=== PATIENT | female | born 1970 | race Caucasian/White ===

== ENCOUNTER → 2018-10-01 | Outpatient (CLI) | payer OTHER ==
[2018-10-01 07:51] LABS: HCT 41.6 % (34.0-46.0); HGB 13.9 gm/dL (11.4-16.0); MCH 30.5 pg (25.0-35.0); MCHC 33.3 g/dL (31.0-37.0); MCV 91.8 fL (80.0-100.0); Mean Platelet Volume 6.7; Platelet Count 298 k/uL (150-450); RBC 4.54 m/uL (3.80-5.40); RDW 13.5 % (11.5-15.5); WBC 12.2 k/uL (3.8-10.6)
[2018-10-01 08:05] LABS: Albumin 4.4 g/dL (3.5-5.0); Calcium 9.5 mg/dL (8.4-10.2); Potassium 4.5 mmol/L (3.5-5.1); Total Bilirubin 0.4 mg/dL (0.2-1.3); Total Protein 7.8 g/dL (6.3-8.2)
[2018-10-01 08:18] LABS: INR 0.9 (<1.2); Partial Thromboplastin Time 23.3 sec (22.0-30.0); Prothrombin Time 9.9 sec (9.0-12.0)
[2018-10-01 08:33] LABS: Appearance,Urine Clear (Clear); Bacteria,Urine Rare /hpf; Bilirubin,Urine Negative (Negative); Blood,Urine Moderate (Negative); Color,Urine Yellow; Glucose,Urine (UA) Negative (Negative); Hyaline Casts,Urine 16 /lpf (0-2); Ketones,Urine Negative (Negative); Leukocyte Esterase,Urine Negative (Negative); Mucus,Urine Many /hpf; Nitrite,Urine Negative (Negative); PH, Urine 5.5 (5.0-8.0); Protein,Urine 1+ (Negative); RBC,Urine 11 /hpf (0-5); Specific Gravity,Urine 1.031 (1.001-1.035); Squamous Epithelial Cell,Urine 4 /hpf (0-4); Urobilinogen,Urine <2.0 mg/dL (<2.0); WBC,Urine 4 /hpf (0-5)
== END | disposition home or self-care (01) ==
LOC: LABPAT 06:54
PROVIDERS: ATTEND Orthopaedic Surgery Hand Surgery
DX: Z01.818 Encounter for other preprocedural examination (principal); Z01.812 Encounter for preprocedural laboratory examination
CPT/HCPCS: 80053; 81001; 85027; 85610; 85730; 87070; 93005

== ENCOUNTER 2019-08-31 12:40 | Emergency (ER) | payer OTHER ==
[2019-08-31 12:50] VITALS: TEMP 98.9
[2019-08-31] MEDS ORDERED: SODIUM CHLORIDE 0.9% 1,000 ML IV STA (13:01)
[2019-08-31 13:12] LABS: Appearance,Urine Cloudy (Clear); Bacteria,Urine Rare /hpf; Bilirubin,Urine Negative (Negative); Blood,Urine Moderate (Negative); Color,Urine Yellow; Glucose,Urine (UA) Negative (Negative); Hyaline Casts,Urine 7 /lpf (0-2); Ketones,Urine Negative (Negative); Leukocyte Esterase,Urine Negative (Negative); Mucus,Urine Moderate /hpf; Nitrite,Urine Negative (Negative); Protein,Urine 1+ (Negative); RBC,Urine 9 /hpf (0-5); Specific Gravity,Urine 1.022 (1.001-1.035); Squamous Epithelial Cell,Urine 3 /hpf (0-4); Urobilinogen,Urine <2.0 mg/dL (<2.0); WBC,Urine 2 /hpf (0-5)
[2019-08-31 13:17] LABS: Basophils # (A) 0.1 k/uL (0-0.2); Basophils % (A) 1 %; Eosinophils # (A) 0.2 k/uL (0-0.7); Eosinophils % (A) 2 %; HCT 42.8 % (34.0-46.0); HGB 13.6 gm/dL (11.4-16.0); Lymphocytes # (A) 2.9 k/uL (1.0-4.8); Lymphocytes % (A) 29 %; MCH 30.3 pg (25.0-35.0); MCHC 31.9 g/dL (31.0-37.0); MCV 94.9 fL (80.0-100.0); Mean Platelet Volume 6.7; Monocytes # (A) 0.4 k/uL (0-1.0); Monocytes % (A) 4 %; Neutrophils # (A) 6.2 k/uL (1.3-7.7); Neutrophils % (A) 62 %; Platelet Count 273 k/uL (150-450); RBC 4.51 m/uL (3.80-5.40); RDW 12.7 % (11.5-15.5)
[2019-08-31 13:30] LABS: ALT 18 U/L (4-34); AST 26 U/L (14-36); African American GFR (CKD) >90 (>60 ml/min/1.73 sqM); Albumin 4.3 g/dL (3.5-5.0); Alkaline Phosphatase 103 U/L (38-126); Anion Gap 8 mmol/L; Blood Urea Nitrogen 12 mg/dL (7-17); Carbon Dioxide 26 mmol/L (22-30); Chloride 100 mmol/L (98-107); Glucose 105 mg/dL (74-99); Non-African American GFR(CKD) >90 (>60 ml/min/1.73 sqM); Sodium 134 mmol/L (137-145); Total Bilirubin 0.3 mg/dL (0.2-1.3); Total Protein 7.7 g/dL (6.3-8.2)
--- NOTE | 2019-08-31 13:30 | ED ---
General Adult HPI - General Chief complaint: Urogenital Stated complaint: possible kidney stone Time Seen by Provider: 08/31/19 12:51 Source: patient, RN notes reviewed Mode of arrival: ambulatory Limitations: no limitations - History of Present Illness Initial comments: This a 49-year-old female presents emergency Department chief complaint of abdominal discomfort, flank pain, nausea vomiting. Patient is not felt well last couple days. She states she has severe nausea vomiting last night but she does feel improved aspect. She states that she has some lower abdominal pain, bilateral flank pain. Patient was seen in urgent care sent over secondary flank pain and hematuria. She has no history kidney stone she does admit that she always has blood within her urine after treatment of breast cancer. Patient denies any known fever but states that she's felt like she's had one. Patient denies any chest pain or shortness breath she did complain of a headache which is now resolved. - Related Data Home Medications Medication Instructions Recorded Confirmed Montelukast [Singulair] 10 mg PO DAILY 11/07/14 10/09/18 Gabapentin [Neurontin] 400 mg PO DAILY 12/07/17 10/09/18 Levothyroxine Sodium [Synthroid] 100 mcg PO DAILY 12/07/17 10/09/18 Tamoxifen [Nolvadex] 10 mg PO DAILY 12/07/17 10/09/18 Penicillin V Potassium [Pen Vee K] 500 mg PO QID 10/05/18 10/09/18 Previous Rx's Medication Instructions Recorded Aspirin 325 mg PO BID #60 tab 10/10/18 HYDROcodone/APAP 7.5-325MG [[place] 1 - 2 tab PO Q6H PRN #56 tab 10/10/18 7.5-325] Nicotine 21Mg/24Hr Patch [Habitrol] 1 patch TRANSDERM DAILY #30 patch 10/10/18 Sennosides [Senokot] 1 tab PO BID #60 tablet 10/10/18 Allergies Allergy/AdvReac Type Severity Reaction Status Date / Time phenazopyridine HCl Allergy Severe throat and Verified 08/31/19 12:50 [From Pyridium] lip swelling Review of Systems ROS Statement: Those systems with pertinent positive or pertinent negative responses have been documented in the HPI. ROS Other: All systems not noted in ROS Statement are negative. Past Medical History Past Medical History: Cancer, Thyroid Disorder Additional Past Medical History / Comment(s): lt breast cancer/ chemo/ 2016, joann mical induced cystitis History of Any Multi-Drug Resistant Organisms: None Reported Past Surgical History: Orthopedic Surgery, Tubal Ligation Additional Past Surgical History / Comment(s): jcarlos. masctectomy; L ankle plate Past Anesthesia/Blood Transfusion Reactions: No Reported Reaction Additional Past Anesthesia/Blood Transfusion Reaction / Comment(s): hard to wake sometimes Past Psychological History: No Psychological Hx Reported Smoking Status: Current every day smoker Past Alcohol Use History: Occasional Past Drug Use History: None Reported - Past Family History Mother Family Medical History: No Reported History Father Family Medical History: No Reported History General Exam Limitations: no limitations General appearance: alert, in no apparent distress Head exam: Present: atraumatic, normocephalic, normal inspection Eye exam: Present: normal appearance, PERRL, EOMI. Absent: scleral icterus, conjunctival injection, periorbital swelling Neck exam: Present: normal inspection, full ROM. Absent: tenderness, meningismus, lymphadenopathy Respiratory exam: Present: normal lung sounds bilaterally. Absent: respiratory distress, wheezes, rales, rhonchi, stridor Cardiovascular Exam: Present: normal rhythm, tachycardia, normal heart sounds. Absent: systolic murmur, diastolic murmur, rubs, gallop, clicks GI/Abdominal exam: Present: soft, tenderness (Mild lower abdominal), normal bowel sounds. Absent: distended, guarding, rebound, rigid Back exam: Present: CVA tenderness (L). Absent: CVA tenderness (R) Neurological exam: Present: alert, oriented X3, CN II-XII intact Skin exam: Present: warm, dry, intact, normal color. Absent: rash Course Vital Signs 08/31/19 12:45 Temperature 98.9 F Pulse Rate 122 H Respiratory 20 Rate Blood Pressure 138/99 O2 Sat by Pulse 100 Oximetry Medical Decision Making - Medical Decision Making 41-year-old female presents emergency Department after urgent care visit hematuria. Patient labs and imaging were reviewed no significant findings she does have minimal hematuria which is chronic for her. She's had this evaluated. Patient also has a viral syndrome will be discharged to admission she agrees this plan and updated on results. - Lab Data Result diagrams: 08/31/19 13:09 08/31/19 13:09 Lab Results 05/08/31/19 08/31/19 Range/Units 13:00 13:09 13:09 WBC 10.0 (3.8-10.6) k/uL RBC 4.51 (3.80-5.40) m/uL Hgb 13.6 (11.4-16.0) gm/dL Hct 42.8 (34.0-46.0) % MCV 94.9 (80.0-100.0) fL MCH 30.3 (25.0-35.0) pg MCHC 31.9 (31.0-37.0) g/dL RDW 12.7 (11.5-15.5) % Plt Count 273 (150-450) k/uL Neutrophils % 62 % Lymphocytes % 29 % Monocytes % 4 % Eosinophils % 2 % Basophils % 1 % Neutrophils # 6.2 (1.3-7.7) k/uL Lymphocytes # 2.9 (1.0-4.8) k/uL Monocytes # 0.4 (0-1.0) k/uL Eosinophils # 0.2 (0-0.7) k/uL Basophils # 0.1 (0-0.2) k/uL Sodium 134 L (137-145) mmol/L Potassium 4.0 (3.5-5.1) mmol/L Chloride 100 (98-107) mmol/L Carbon Dioxide 26 (22-30) mmol/L Anion Gap 8 mmol/L BUN 12 (7-17) mg/dL Creatinine 0.65 (0.52-1.04) mg/dL Est GFR (CKD-EPI)AfAm >90 (>60 ml/min/1.73 sqM) Est GFR (CKD-EPI)NonAf >90 (>60 ml/min/1.73 sqM) Glucose 105 H (74-99) mg/dL Plasma Lactic Acid Jairo (0.7-2.0) mmol/L Calcium 9.0 (8.4-10.2) mg/dL Total Bilirubin 0.3 (0.2-1.3) mg/dL AST 26 (14-36) U/L ALT 18 (4-34) U/L Alkaline Phosphatase 103 (38-126) U/L Total Protein 7.7 (6.3-8.2) g/dL Albumin 4.3 (3.5-5.0) g/dL Lipase 39 (23-300) U/L Urine Color Yellow Urine Appearance Cloudy H (Clear) Urine pH 6.0 (5.0-8.0) Ur Specific [place] 1.022 (1.001-1.035) Urine Protein 1+ H (Negative) Urine Glucose (UA) Negative (Negative) Urine Ketones Negative (Negative) Urine Blood Moderate H (Negative) Urine Nitrite Negative (Negative) Urine Bilirubin Negative (Negative) Urine Urobilinogen <2.0 (<2.0) mg/dL Ur Leukocyte Esterase Negative (Negative) Urine RBC 9 H (0-5) /hpf Urine WBC 2 (0-5) /hpf Ur Squamous Epith Cells 3 (0-4) /hpf Urine Bacteria Rare H (None) /hpf Hyaline Casts 7 H (0-2) /lpf Urine Mucus Moderate H (None) /hpf 08/31/19 Range/Units 13:09 WBC (3.8-10.6) k/uL RBC (3.80-5.40) m/uL Hgb (11.4-16.0) gm/dL Hct (34.0-46.0) % MCV (80.0-100.0) fL MCH (25.0-35.0) pg MCHC (31.0-37.0) g/dL RDW (11.5-15.5) % Plt Count (150-450) k/uL Neutrophils % % Lymphocytes % % Monocytes % % Eosinophils % % Basophils % % Neutrophils # (1.3-7.7) k/uL Lymphocytes # (1.0-4.8) k/uL Monocytes # (0-1.0) k/uL Eosinophils # (0-0.7) k/uL Basophils # (0-0.2) k/uL Sodium (137-145) mmol/L Potassium (3.5-5.1) mmol/L Chloride (98-107) mmol/L Carbon Dioxide (22-30) mmol/L Anion Gap mmol/L BUN (7-17) mg/dL Creatinine (0.52-1.04) mg/dL Est GFR (CKD-EPI)AfAm (>60 ml/min/1.73 sqM) Est GFR (CKD-EPI)NonAf (>60 ml/min/1.73 sqM) Glucose (74-99) mg/dL Plasma Lactic Acid Jairo 1.2 (0.7-2.0) mmol/L Calcium (8.4-10.2) mg/dL Total Bilirubin (0.2-1.3) mg/dL AST (14-36) U/L ALT (4-34) U/L Alkaline Phosphatase (38-126) U/L Total Protein (6.3-8.2) g/dL Albumin (3.5-5.0) g/dL Lipase (23-300) U/L Urine Color Urine Appearance (Clear) Urine pH (5.0-8.0) Ur Specific [place] (1.001-1.035) Urine Protein (Negative) Urine Glucose (UA) (Negative) Urine Ketones (Negative) Urine Blood (Negative) Urine Nitrite (Negative) Urine Bilirubin (Negative) Urine Urobilinogen (<2.0) mg/dL Ur Leukocyte Esterase (Negative) Urine RBC (0-5) /hpf Urine WBC (0-5) /hpf Ur Squamous Epith Cells (0-4) /hpf Urine Bacteria (None) /hpf Hyaline Casts (0-2) /lpf Urine Mucus (None) /hpf Disposition Clinical Impression: Flank pain, Viral infection, Hematuria Disposition: HOME SELF-CARE Condition: Stable Instructions (If sedation given, give patient instructions): Abdominal Pain (ED) Additional Instructions: Please return to the Emergency Department if symptoms worsen or any other concerns. Is patient prescribed a controlled substance at d/c from ED?: No Referrals: Prashanth De Anda Jr, [Primary Care Provider] - 1-2 days Time of Disposition: 14:28
--- NOTE | 2019-08-31 14:07 | CT ---
EXAMINATION TYPE: CT abdomen pelvis w con DATE OF EXAM: 08/31/2019 REFERENCE: Previous CT scan of the chest, abdomen and pelvis dated 11/06/2014. HISTORY: abdominal pain HISTORY: bilateral flank pain, bladder pain, microscopic hematuria, history of breast CA REFERENCE: NONE CT DLP: 1337.2 mGy Automated exposure control for dose reduction was used. TECHNIQUE: Helical acquisition through the abdomen and pelvis was obtained following the oral ingesti on of without Oral Contrast and following intravenous administration of 100 mL of Isovue 300. The lisseth a was reformatted in axial, coronal and sagittal projections. FINDINGS: The right breast prosthesis is partially visualized. Visualized portions of the lungs are clear. There is no pleural or pericardial fluid. The heart is no t enlarged. Within the abdomen, the liver is enlarged measuring 23 cm. It is low in attenuation and likely fatty infiltrated. The spleen and gallbladder are normal. Both adrenal glands are normal. There is no evidence of hydronephrosis or nephrolithiasis. Both kidneys demonstrate function and appe ar morphologically normal. The pancreas is normal. There is no significant retroperitoneal, iliac or inguinal adenopathy. The bladder wall is mildly thickened. This may be due to lack of distention. There is a partially calcified 2.2 cm fibroid within the left lateral body of the uterus. There is be en a previous tubal ligation. There are scattered diverticula within the sigmoid colon. There is no radiographic evidence of divert iculitis. The appendix is normal. Small bowel loops are of normal caliber. There is no free air and no free fluid seen. There is degenerative disc disease and a vacuum phenomena present at L5-S1. There is facet arthropath y at this level and also at the L4-5 level. IMPRESSION: 1. MILD THICKENING OF BLADDER WALL. PLEASE CORRELATE FOR CYSTITIS. 2. HEPATOMEGALY AND FATTY INFILTRATION OF THE LIVER. 3. NO EVIDENCE OF HYDRONEPHROSIS OR NEPHROLITHIASIS. 4. FIBROID UTERUS. 5. MILD, UNCOMPLICATED DIVERTICULOSIS OF THE SIGMOID COLON. 6. DEGENERATIVE CHANGES WITHIN THE SPINE.
[2019-08-31 14:44] VITALS: BP 130/70; PULSE 80; RESP 18
== END 2019-08-31 14:40 | disposition home or self-care (01) ==
LOC: EC 12:40
DX: B34.9 Viral infection, unspecified (principal); R31.9 Hematuria, unspecified; R10.9 Unspecified abdominal pain; R00.0 Tachycardia, unspecified; F17.200 Nicotine dependence, unspecified, uncomplicated; Z88.8 Allergy status to other drugs, medicaments and biological substances; Z79.899 Other long term (current) drug therapy; Z85.3 Personal history of malignant neoplasm of breast; Z92.21 Personal history of antineoplastic chemotherapy; Z87.448 Personal history of other diseases of urinary system
CPT/HCPCS: 36415; 80053; 83605; 83690; 85025; 81001; 74177; 96360; 99284; Q9967

== ENCOUNTER → 2019-12-11 | Outpatient (CLI) | payer OTHER ==
--- NOTE | 2019-12-11 17:21 | XR ---
EXAMINATION TYPE: XR chest 2V DATE OF EXAM: 12/11/2019 CLINICAL HISTORY: Cough and congestion. J12.81 TECHNIQUE: Frontal and lateral views of the chest are obtained. COMPARISON: Chest radiograph 11/12/2014 FINDINGS: The cardiomediastinal silhouette is within normal limits for size. Pulmonary vasculature i s normal. There is no focal air space opacity, pleural effusion, or pneumothorax seen. The osseous st ructures are intact. IMPRESSION: No acute cardiopulmonary process.
== END | disposition home or self-care (01) ==
LOC: RADXRMAIN 16:39
PROVIDERS: ATTEND Family Medicine
DX: J12.81 Pneumonia due to SARS-associated coronavirus (principal)
CPT/HCPCS: 71046

== ENCOUNTER 2020-07-23 03:04 | Emergency (ER) | payer OTHER ==
[2020-07-23 03:11] VITALS: BP 145/84; PULSE 98; RESP 16; TEMP 98.2
--- NOTE | 2020-07-23 03:14 | ED ---
Extremity Problem HPI - General Chief complaint: Extremity Problem,Nontraumatic Stated complaint: Foot Pain Time Seen by Provider: 07/23/20 03:07 Source: patient Mode of arrival: ambulatory Limitations: no limitations - Related Data Home Medications Medication Instructions Recorded Confirmed Montelukast [Singulair] 10 mg PO DAILY 11/07/14 10/09/18 Gabapentin [Neurontin] 400 mg PO DAILY 12/07/17 10/09/18 Levothyroxine Sodium [Synthroid] 100 mcg PO DAILY 12/07/17 10/09/18 Tamoxifen [Nolvadex] 10 mg PO DAILY 12/07/17 10/09/18 Penicillin V Potassium [Pen Vee K] 500 mg PO QID 10/05/18 10/09/18 Previous Rx's Medication Instructions Recorded Aspirin 325 mg PO BID #60 tab 10/10/18 HYDROcodone/APAP 7.5-325MG [[place] 1 - 2 tab PO Q6H PRN #56 tab 10/10/18 7.5-325] Nicotine 21Mg/24Hr Patch [Habitrol] 1 patch TRANSDERM DAILY #30 patch 10/10/18 Sennosides [Senokot] 1 tab PO BID #60 tablet 10/10/18 Allergies Allergy/AdvReac Type Severity Reaction Status Date / Time phenazopyridine HCl Allergy Severe throat and Verified 07/23/20 03:11 [From Pyridium] lip swelling Review of Systems ROS Statement: Those systems with pertinent positive or pertinent negative responses have been documented in the HPI. ROS Other: All systems not noted in ROS Statement are negative. Past Medical History Past Medical History: Cancer, Thyroid Disorder Additional Past Medical History / Comment(s): lt breast cancer/ chemo/ 2016, chemical induced cystitis History of Any Multi-Drug Resistant Organisms: None Reported Past Surgical History: Orthopedic Surgery, Tubal Ligation Additional Past Surgical History / Comment(s): jcarlos. masctectomy; L ankle plate Past Anesthesia/Blood Transfusion Reactions: No Reported Reaction Additional Past Anesthesia/Blood Transfusion Reaction / Comment(s): hard to wake sometimes Past Psychological History: No Psychological Hx Reported Past Alcohol Use History: Occasional Past Drug Use History: None Reported - Past Family History Mother Family Medical History: No Reported History Father Family Medical History: No Reported History General Exam Limitations: no limitations Course Vital Signs 07/23/20 03:09 Temperature 98.2 F Pulse Rate 98 Respiratory 16 Rate Blood Pressure 145/84 O2 Sat by Pulse 100 Oximetry Disposition Clinical Impression: Right foot pain Disposition: HOME SELF-CARE Condition: Good Instructions (If sedation given, give patient instructions): Metatarsalgia (DC) Is patient prescribed a controlled substance at d/c from ED?: No Referrals: Prashanth De Anda Jr, DO [Primary Care Provider] - 1-2 days Jef Bey DPM [STAFF PHYSICIAN] - 1-2 days Jleani Gomes DPM [STAFF PHYSICIAN] - 1-2 days
--- NOTE | 2020-07-23 03:39 | XR ---
EXAM: XR Right Foot Complete, 3 or More Views CLINICAL HISTORY: ITS.REASON XR Reason: pain TECHNIQUE: Frontal, lateral and oblique views of the right foot. COMPARISON: No relevant prior studies available. FINDINGS: Bones/joints: Small calcaneal heel spur. No acute fracture. No dislocation. Soft tissues: Unremarkable. No radiopaque foreign body. IMPRESSION: Normal right foot x-rays.
== END 2020-07-23 04:08 | disposition home or self-care (01) ==
LOC: EC 03:04
DX: M79.671 Pain in right foot (principal); Z79.82 Long term (current) use of aspirin
CPT/HCPCS: 99283

== ENCOUNTER → 2020-10-20 | Outpatient (CLI) | payer OTHER | CPT/HCPCS: 86780; 86803; 87340; 87390; 87480; 87491; 87510; 87591; 87660 ==

== ENCOUNTER → 2021-06-03 | Outpatient (CLI) | payer OTHER ==
--- NOTE | 2021-06-03 15:48 | US ---
EXAMINATION TYPE: US pelvic complete DATE OF EXAM: 06/03/2021 COMPARISON: NONE CLINICAL HISTORY: 50-year-old female N95.0 Post Menopausal Bleeding. Spotting, on tamoxifen, hx of br [place]. hx of fibroids. TECHNIQUE: Transvaginal sonographic images were medically necessary to better assess the following an atomy: Uterus and ovaries. Date of LMP: 2014 FINDINGS: EXAM MEASUREMENTS: Uterus: 11.9 x 6 x 7.8 cm Endometrial Stripe: 2.2 cm 1. Uterus: Anteverted Heterogenous fibroid uterus. Heterogeneous rounded area anterior uterine bod y appears intramural but may have a submucosal component and measures 3.2 x 2.8 x 4.3 cm. Calcified f ibroid posterior uterine body is primarily intramural measuring 1.7 x 1.1 x 2.1 cm. 2. Endometrium: Appears thickened. 3. Right Ovary: Obscured by overlying bowel gas 4. Left Ovary: Obscured by overlying bowel gas\ 5. Bilateral Adnexa: wnl 6. Posterior cul-de-sac: wnl IMPRESSION: 1. Fibroid uterus. There is a rounded heterogeneous area measuring 4.3 cm along the anterior body, zuñiga spected right that is primarily intramural but may have a submucosal component. Short interval follow -up to reassess. 2. Additional 2.1 cm posterior uterine body calcified fibroid. 3. Thickened endometrial stripe at 2.2 cm. Reassess any 6-8 week follow-up . This could be due to en dometrial hyperplasia from tamoxifen use. Further evaluation as clinically indicated. 4. Unable to visualize either ovary.
== END | disposition home or self-care (01) ==
LOC: RADUSWWP 12:54
PROVIDERS: ATTEND Obstetrics & Gynecology
DX: D25.9 Leiomyoma of uterus, unspecified (principal)
CPT/HCPCS: 76830; 76856

== ENCOUNTER → 2021-06-16 | Day surgery (SDC) | payer OTHER ==
[2021-06-16 09:09] VITALS: BP 161/89; PULSE 110; RESP 18; TEMP 98.5
--- NOTE | 2021-06-16 10:21 | P.PCN ---
Date of Procedure: 06/16/21 Preoperative Diagnosis: Postmenopausal bleeding. Postoperative Diagnosis: Postmenopausal bleeding. Procedure(s) Performed: Endometrial biopsy. Anesthesia: none Surgeon: Jj Vergara Estimated Blood Loss (ml): 1 Pathology: other (Endometrial tissue) Condition: stable Disposition: same day Indications for Procedure: This was a 51-year-old female with an LNMP of 2015. The patient has a history of breast cancer and following chemotherapy in 2014, she has been amenorrheic. She was also started on tamoxifen for the breast cancer. She developed light vaginal bleeding on 05/21/2021 and the tamoxifen then was immediately discontinued. Her bleeding was light and lasted 2 days. She has not had bleeding since then. Pelvic ultrasound showed uterine fibroids and endometrial thickening measuring 2.2 cm. Operative Findings: The uterus is multiparous and sounded to 8.5 cm. Small amount of tissue was obtained. Description of Procedure: The findings from the pelvic ultrasound were reviewed with the patient. We have discussed the endometrial biopsy procedure. We have discussed possible risks and complications including bleeding, infection, and uterine perforation. All of her questions were answered. Patient was placed in the lithotomy position. Bimanual examination was performed. A speculum was inserted into the vagina. The cervix and vagina were prepped with Betadine solution. An Allis clamp was placed on the anterior lip of the cervix. The 3 mm endometrial biopsy instrument was placed to the fundus without difficulty. The uterus sounded to 8.5 cm. Negative pressure was applied and a back and forth and rotating motion was used. A small amount of tissue was obtained and placed in the specimen container. The procedure was performed one additional time to obtain more tissue. Again, a small amount of tissue was obtained and the combined tissue was sent for pathological examination. The patient tolerated the procedure well. The estimated blood loss was 1 mL. Her initial blood pressure following the procedure was 162/106. Her preprocedure blood pressure was 161/89. The post procedure blood pressure was obtained several minutes later after allowing the patient to relax. The repeat blood pressure was 141/88 with a pulse of 99. The patient was discharged home in stable condition. The patient was advised to check her own blood pressure on a regular basis at home since she does have a blood pressure cuff. She was instructed to follow-up with Dr. De Anda, her primary care physician, for blood pressure elevations. The patient was instructed to call if heavy bleeding, unusual pain, fever, or problems. The patient states she has been experiencing urinary symptoms and she believes she has a bladder UTI. 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 She states that over the last 2 months she has gradually been having worsening urinary symptoms especially during the past 2 weeks and she states she has had increasing bladder pressure, worsening urinary urgency which is only briefly improved after voiding. She also also been having dysuria especially at the end of urinating. Urine has been obtained for urinalysis and culture with sensitivity. She will be treated empirically with Macrodantin 100 mg by mouth twice a day 7 days. The electronic prescription for this will be sent to my her pharmacy in [place]. If her urinary symptoms do not improve, she will follow up with her urologist.
== END ==
LOC: WWCWWP 08:52
PROVIDERS: ATTEND Obstetrics & Gynecology
DX: N88.8 Other specified noninflammatory disorders of cervix uteri (principal); N85.8 Other specified noninflammatory disorders of uterus; N95.0 Postmenopausal bleeding
CPT/HCPCS: 88305

== ENCOUNTER → 2021-08-20 | Outpatient (CLI) | payer OTHER ==
[2021-08-20 11:13] LABS: HCT 38.7 % (37.2-46.3); HGB 12.4 g/dL (12.0-15.0); MCH 29.7 pg (27.0-32.0); MCV 92.8 fL (80.0-97.0); NRBC Per 100 WBC 0 /100 WBCS (0.0-0.0); Platelet Count 305 X 10*3/uL (140-440); RBC 4.17 X 10*6/uL (4.10-5.20); RDW 12.8 % (11.5-14.5); WBC 8.08 X 10*3/uL (4.50-10.00)
[2021-08-20 13:04] LABS: Basophils # (A) 0.04 X 10*3/uL (0.00-0.10); Basophils % (A) 0.5 %; Eosinophils # (A) 0.34 X 10*3/uL (0.04-0.35); Eosinophils % (A) 4.2 %; Immature Grans, Automated 0.4 %; Lymphocytes # (A) 3.22 X 10*3/uL (0.90-5.00); Lymphocytes % (A) 39.9 %; Monocytes # (A) 0.59 X 10*3/uL (0.20-1.00); Monocytes % (A) 7.3 %; Neutrophils # (A) 3.86 X 10*3/uL (1.80-7.70); Neutrophils % (A) 47.7 %
== END | disposition home or self-care (01) ==
LOC: LABPAT 07:02
PROVIDERS: ATTEND Obstetrics & Gynecology
DX: Z01.812 Encounter for preprocedural laboratory examination (principal); N95.0 Postmenopausal bleeding; R93.89 Abnormal findings on diagnostic imaging of other specified body structures
CPT/HCPCS: 36415; 85025

== ENCOUNTER 2021-08-24 06:49 | Day surgery (SDC) | payer OTHER ==
[2021-08-23 10:32] VITALS: BMI 33.3
[~2021-08-24 06:49] MED LIST: DEXAMETHASONE SOD PHOSPHATE 4 MG/ML 1 ML VIAL IV ONE; LACTATED RINGERS 1,000 ML IV SCH; MIDAZOLAM 2 MG/2 ML VIAL IV PRN; ONDANSETRON 4 MG/2 ML VIAL IVP ONE; Pre Op ABX Message 1 EACH MISC MISCELLANE ONE; SCOPOLAMINE 1 MG/72 HR PATCH TRANSDERM ONE
[2021-08-24] MEDS ORDERED: HYDROmorphone 0.5 MG/0.5 ML SYRINGE IVP PRN (07:00)
[2021-08-24] MEDS ORDERED: LIDOCAINE 2% INJ 20 MG/ML (2 ML VIAL) ONE (07:56)
[2021-08-24] MEDS ORDERED: PROPOFOL 10 MG/ML 20 ML VIAL IV ONE (07:56)
[2021-08-24] MEDS ORDERED: MIDAZOLAM 2 MG/2 ML VIAL ONE (07:56)
[2021-08-24] MEDS ORDERED: KETOROLAC 15 MG/ML 1 ML VIAL ONE (07:56)
[2021-08-24] MEDS ORDERED: fentaNYL (PF) 50 MCG/ML 2 ML AMP ONE (07:56)
--- NOTE | 2021-08-24 08:35 | P.OP ---
Date of Procedure: 08/24/21 Preoperative Diagnosis: Thickened endometrium sonographically Postoperative Diagnosis: Submucosal fibroids, small, 3-4 in number Procedure(s) Performed: Hysteroscopy, dilatation and curettage of the uterine cavity Anesthesia: VIVIENNE Surgeon: Sapna Block Estimated Blood Loss (ml): 10 IV fluids (ml): 500 Urine output (ml): 50 Pathology: other (Endometrial curettings) Condition: stable Disposition: PACU Description of Procedure: Patient is brought to the operating suite where general anesthetic is administered without difficulty. She's placed in the dorsal lithotomy position, the cervix, vagina, perineal bodies are all prepped and draped in the usual sterile fashion. The appropriate timeout is performed to assure proper patient and procedural identification. Urine hCG is negative. The urethra is prepped with Betadine and a catheterized specimen is urine is sent to pathology for evaluation for previous history of urinary tract infection. Examination under anesthesia reveals a small mobile uterus, negative adnexa bilaterally. Weighted speculum was placed into the vagina. The anterior lip of the cervix is grasped gently with a double-tooth tenaculum. Uterus sounds to a depth of 9 cm in the anteverted position. The cervix is now gently and systematically dilated using Hanks dilators. Hysteroscope was introduced and fluid is infused into the cavity. The cavity is distended and inspected. There are 3-4 small submucosal fibroids noted. No other obvious polyps or defects. Hysteroscope was removed. Cavity is now thoroughly and systematically curettaged with a medium sharp curette for a moderate amount of tissue. Hysteroscope was once again placed, several small fibroids are still present, however a good sampling of the cavity has been obtained. 's speculum is removed and the tenaculum is removed. Cervix is clean and dry. All sponge needle and enhancement counts are correct. Patient is brought back to recovery room in stable condition with a pulse of 74, blood pressure 118/69, 98% O2 saturation. Toradol is given prior to leaving the operative suite. Patient will follow-up with me in the office in 2 weeks.
[2021-08-24 08:44] VITALS: RESP 16; TEMP 98.3
[2021-08-24 09:33] VITALS: BP 137/83; PULSE 85
== END 2021-08-24 10:00 | disposition home or self-care (01) ==
LOC: OR 06:49
PROVIDERS: ATTEND Obstetrics & Gynecology
DX: D25.0 Submucous leiomyoma of uterus (principal)
CPT/HCPCS: 58558; 81025; 88305; 87086; J2250; J1100; J2405; J3010; J1885; J2704; J2001

== ENCOUNTER → 2021-11-08 | Outpatient (CLI) | payer OTHER ==
[2021-11-08 09:43] LABS: African American GFR (CKD) >90 (>60 ml/min/1.73 sqM); Blood Urea Nitrogen 11 mg/dL (7-17); Non-African American GFR(CKD) >90 (>60 ml/min/1.73 sqM)
--- NOTE | 2021-11-08 11:28 | CT ---
EXAMINATION TYPE: CT abdomen pelvis w con DATE OF EXAM: 11/08/2021 COMPARISON: 08/31/2019 HISTORY: 51-year-old female C50.212, Abdominal pain and vaginal blood spotting. History of breast can cer. TECHNIQUE: Contiguous axial scanning of the abdomen and pelvis following administration of 100 ml Iso willy 300 IV contrast. Delayed images through the kidneys and coronal/sagittal reconstructions perform ed. CT DLP: 1278.6 mGycm Automated exposure control for dose reduction was used. FINDINGS: Heart normal size without pericardial effusion. Lung bases clear without pleural effusion. Partially visualized bilateral breast implants. There is a small hiatal hernia. Liver enlarged at 21.5 cm with diffuse low attenuation. Portal venous system is patent. No biliary du ctal dilatation. Gallbladder, adrenal glands, spleen with a couple small hilar splenule, pancreas within normal limits . Kidneys show a delay in excretion on delayed kidney images. Correlate with patient's kidney function to exclude acute kidney injury. Numerous nonenlarged lower retroperitoneal nodes and some nonenlarged borderline sized common iliac c elsa lymph nodes measuring up to 8 mm remains stable. No dilated small bowel, free fluid, or free air. No mesenteric lymphadenopathy seen. Normal appendix. Oral contrast progressed to the hepatic flexure of the colon. Mild overall spinal wo rding. No pericolonic inflammatory change. Bladder urine distended. Bulky appearing fibroid uterus is anteverted. Fibroid change with calcified fibroids left uterine fundus measuring up to 3.1 cm. Ectatic veins in the right inguinal region. Juancarlos earance is unchanged from 08/31/2019. Bones: Artifact from patient's left hip total arthroplasty. [id number] degenerative change righ t hip. Degenerative changes left greater than right SI joints. Hypertrophic facet arthropathy throughout with moderate degenerative disc disease L5-S1. Degenerative grade 1 anterolisthesis L4-L5. IMPRESSION: 1. FIBROID UTERUS. IF THE PATIENT IS POSTMENOPAUSAL WITH VAGINAL BLEEDING, RECOMMEND FURTHER ULTRASOU ND OR FEMALE PELVIC MRI EVALUATION TO BETTER ASSESS THE JUNCTIONAL ANATOMY AND ENDOMETRIUM. 2. HEPATOMEGALY (21.5 CM) WITH AT LEAST MODERATE HEPATIC STEATOSIS. CORRELATE WITH LFT's, LIPID PROFI LE, AND PATIENT RISK FACTORS. 3. DELAYED EXCRETION OF CONTRAST FROM THE KIDNEYS. CORRELATE WITH RENAL FUNCTION TO EXCLUDE ACUTE KID KAI INJURY. 4. SMALL HIATAL HERNIA.
[2021-11-08 12:59] LABS: ALT 21 U/L (4-34); AST 24 U/L (14-36); Albumin 3.7 g/dL (3.5-5.0); Albumin/Globulin Ratio 1.1; Alkaline Phosphatase 124 U/L (38-126); Anion Gap 6 mmol/L; Carbon Dioxide 29 mmol/L (22-30); Chloride 102 mmol/L (98-107); Globulin 3.4 g/dL; Glucose 105 mg/dL (74-99); Potassium 4.5 mmol/L (3.5-5.1); Sodium 137 mmol/L (137-145); Total Bilirubin <0.1 mg/dL (0.2-1.3); Total Protein 7.1 g/dL (6.3-8.2)
--- NOTE | 2021-11-08 15:55 | NM ---
EXAMINATION TYPE: NM bone scan whole body DATE OF EXAM: 11/08/2021 COMPARISON: 11/06/[address] same day HISTORY: 51-year-old female C5 0.212, breast cancer Technique: Delayed whole-body scanning was performed following the injection of 23.1 mCi Tc 99m MDP. Images acquired 4 hours post injection. FINDINGS: Scattered degenerative tracer activity at the shoulders, knees, ankles, and remainder of the feet. De generative tracer activity mid to lower lumbar spine. Suspect interval placement of left hip hemiarth roplasty. IMPRESSION: No convincing scintigraphic evidence for osseous metastatic disease. Scattered degenerative tracer ac tivity as above. Status post left hip total arthroplasty.
[2021-11-08 17:47] LABS: Basophils # (A) 0.04 X 10*3/uL (0.00-0.10); Basophils % (A) 0.5 %; Eosinophils # (A) 0.29 X 10*3/uL (0.04-0.35); Eosinophils % (A) 3.8 %; HCT 42.3 % (37.2-46.3); Immature Grans, Automated 0.3 %; Lymphocytes # (A) 2.07 X 10*3/uL (0.90-5.00); MCH 29.1 pg (27.0-32.0); MCHC 30.7 g/dL (32.0-37.0); MCV 94.6 fL (80.0-97.0); Mean Platelet Volume 9.3 fL (9.5-12.2); Monocytes # (A) 0.46 X 10*3/uL (0.20-1.00); NRBC Per 100 WBC 0 /100 WBCS (0.0-0.0); Neutrophils # (A) 4.79 X 10*3/uL (1.80-7.70); Neutrophils % (A) 62.4 %; Platelet Count 341 X 10*3/uL (140-440); RBC 4.47 X 10*6/uL (4.10-5.20); RDW 12.5 % (11.5-14.5); WBC 7.67 X 10*3/uL (4.50-10.00)
[2021-11-08 20:47] LABS: Follicle Stimulating Hormone 63.2 mIU/mL
[2021-11-08 21:06] LABS: Estradiol <5.0 pg/mL
== END | disposition home or self-care (01) ==
LOC: RADNMMAIN 08:50
PROVIDERS: ATTEND Internal Medicine Hematology & Oncology
DX: C50.212 Malignant neoplasm of upper-inner quadrant of left female breast (principal); D25.9 Leiomyoma of uterus, unspecified; R16.1 Splenomegaly, not elsewhere classified; K76.0 Fatty (change of) liver, not elsewhere classified; K44.9 Diaphragmatic hernia without obstruction or gangrene
CPT/HCPCS: 80053; 83001; 83002; 82670; 85025; 74177; 36415; 78306; A9503; Q9967 ×2

== ENCOUNTER → 2022-01-31 | Outpatient (CLI) | payer OTHER ==
[2022-01-31 22:55] LABS: Basophils # (A) 0.07 X 10*3/uL (0.00-0.10); Basophils % (A) 0.8 %; Eosinophils # (A) 0.32 X 10*3/uL (0.04-0.35); Eosinophils % (A) 3.4 %; HCT 39.9 % (37.2-46.3); HGB 13.2 g/dL (12.0-15.0); Immature Grans, Automated 0.4 %; Lymphocytes % (A) 24.8 %; MCH 30.1 pg (27.0-32.0); MCHC 33.1 g/dL (32.0-37.0); MCV 90.9 fL (80.0-97.0); Mean Platelet Volume 8.9 fL (9.5-12.2); Monocytes # (A) 0.61 X 10*3/uL (0.20-1.00); Monocytes % (A) 6.6 %; NRBC Per 100 WBC 0 /100 WBCS (0.0-0.0); Neutrophils # (A) 5.94 X 10*3/uL (1.80-7.70); Platelet Count 379 X 10*3/uL (140-440); RBC 4.39 X 10*6/uL (4.10-5.20); WBC 9.28 X 10*3/uL (4.50-10.00)
== END | disposition home or self-care (01) ==
LOC: LABPAT 15:29
PROVIDERS: ATTEND Obstetrics & Gynecology
DX: Z01.812 Encounter for preprocedural laboratory examination (principal); N95.0 Postmenopausal bleeding; R93.89 Abnormal findings on diagnostic imaging of other specified body structures
CPT/HCPCS: 36415; 85025

== ENCOUNTER 2022-02-01 08:06 | Day surgery (SDC) | payer OTHER ==
--- NOTE | 2022-01-28 05:00 | HP ---
HISTORY AND PHYSICAL DATE OF SURGERY: This . HISTORY OF PRESENT ILLNESS: This is a 51-year-old female, 3, para 1-0-2-1, who presents with a history of heavy irregular painful menses. Endometrial sampling in the office revealed benign tissue. After thorough consultation, she is electing to proceed with hysteroscopy, D and C, and NovaSure endometrial ablation. All risks, benefits, and alternatives have been discussed thoroughly in the office. Endometrial biopsy as reported, performed on 10/26/2021, revealed benign tissue, possible fragments of hyalinized leiomyoma. PAST MEDICAL HISTORY: Significant for alcoholism, anxiety and depression, asthma, bladder issues, breast cancer, fibroid uterus, frequent UTIs, neuropathy, thyroid issues, Trichomonas and yeast infections. PAST SURGICAL HISTORY: Breast reconstruction in 2015, hip replacement of the left hip in 2018, liposuction in 2016, bilateral mastectomy with reconstruction in 2015, tubal ligation in 2001, vein stripping of the left leg in 2014. CURRENT MEDICATIONS: 1. Acidophilus capsules as directed. 2. Gabapentin 400 mg 5 times daily. 3. Letrozole 2.5 mg once daily. 4. Levothyroxine 100 mcg daily. 5. Magnesium supplement daily. 6. Percocet twice a day as needed. 7. Oral potassium supplement daily. 8. Probiotic daily. 9. Singulair 10 mg in the evening. 10.Vitamin B12 orally and vitamin D3 orally daily. ALLERGIES: Include amoxicillin and cephalexin to which reports vaginal itching, and Pyridium to which she reports swollen throat and lips. FAMILY HISTORY: Significant for hypertension, breast cancer, skin cancer, lung cancer, cervical cancer, colon cancer, bladder cancer, leukemia, heart issues. REPRODUCTIVE HISTORY: Significant for vaginal delivery, live-born male in 2021, missed AB, and voluntary termination in the past. SOCIAL HISTORY: The patient works at the [employer]. She is . She is a former user of cocaine, hallucinogens, LSD, and marijuana. Currently smokes 1 pack per day tobacco. Former alcohol user. PHYSICAL EXAMINATION: VITAL SIGNS: The patient is 5 feet 3-1/2 inches, weight is 194 pounds, blood pressure 130/90. Vital signs are stable, and she is otherwise afebrile. HEENT: Reveals no thyromegaly, no cervical lymphadenopathy. NECK: Soft and supple. CHEST: Clear to auscultation in all mckeon anteriorly and posteriorly. BREASTS: Breast implants are bilaterally symmetric and appear well seated. CARDIAC: Reveals regular rate and rhythm with no murmur, click, or rub. ABDOMEN: Obese, nontender. No organosplenomegaly. EXTREMITIES: Reveal no edema. Good peripheral pulses. PELVIC: The cervix is multiparous, smooth and small. Uterus is slightly enlarged clinically, mobile, nontender. Adnexa negative bilaterally. RECTAL: Reveals good tone, negative stool sample. IMPRESSION: Small fibroid uterus, irregular bleeding with dysmenorrhea, requesting NovaSure endometrial ablation with negative endometrial biopsy. PLAN: We will proceed with hysteroscopy and NovaSure endometrial ablation. Second opinion is offered and declined. We have reviewed the risks of anesthesia, aspiration, nerve damage, or even . We have reviewed the risks of bleeding, infection, perforation to the cervix, uterus, or bladder. All questions answered, ramp service agent's handouts received and reviewed by the patient. MMODL / IJN: [id number] /
[2022-01-28 11:14] VITALS: BMI 32.9
[~2022-02-01 08:06] MED LIST changes: +HYDROmorphone 0.5 MG/0.5 ML SYRINGE IVP PRN; -MIDAZOLAM 2 MG/2 ML VIAL IV PRN; -SCOPOLAMINE 1 MG/72 HR PATCH TRANSDERM ONE
[2022-02-01] MEDS ORDERED: MIDAZOLAM 2 MG/2 ML VIAL ONE (09:49)
[2022-02-01] MEDS ORDERED: KETOROLAC 15 MG/ML 1 ML VIAL ONE (09:49)
[2022-02-01] MEDS ORDERED: LIDOCAINE 2% INJ 20 MG/ML (2 ML VIAL) ONE (09:49)
[2022-02-01] MEDS ORDERED: fentaNYL (PF) 50 MCG/ML 2 ML AMP ONE (09:49)
[2022-02-01] MEDS ORDERED: PROPOFOL 10 MG/ML 20 ML VIAL IV ONE (09:49)
--- NOTE | 2022-02-01 10:15 | P.OP ---
Date of Procedure: 02/01/22 Preoperative Diagnosis: This menopausal bleeding, negative endometrial biopsy, thickened endometrium sonographically Postoperative Diagnosis: Same Procedure(s) Performed: Hysteroscopy, D&C, NovaSure endometrial ablation Anesthesia: BRITTNEYA Surgeon: Sapna Block Estimated Blood Loss (ml): 5 IV fluids (ml): 300 Urine output (ml): 100 Pathology: other (Endometrial curettings) Condition: stable Disposition: PACU Operative Findings: Shaggy-appearing endometrium. No obvious polyps fibroids or defects. Description of Procedure: Patient is brought to Bring suite where a general anesthetic is administered wit anup torres per the anesthesia staff. She's placed in the dorsal lithotomy position. The cervix, vagina, perineal bodies are all prepped and draped in usual sterile fashion. Urine hCG is negative. The appropriate timeout is performed to assure proper patient and procedural identification. Examination under anesthesia reveals a small anteverted uterus, negative adnexa bilaterally. The bladder is drained for approximately 100 mL of clear yellow urine. Weighted speculum was placed into the vagina and the anterior lip of the cervix is grasped with a double-tooth tenaculum. Uterus sounds to a depth of 9 cm in the anteverted position. Cervix is then gently and systematically dilated using Hanks dilators. The hysteroscope is introduced and the cavity is distended with sterile saline. Inspection of the cavity reveals shaggy-appearing endometrium, no obvious fibroids polyps or tumors. Hysteroscope was removed. NovaSure wand is then seated calibrated and enabled. Uterine length of 6.0 cm, width of 3.8 cm is chosen. The machine is properly enabled and for 52 seconds procedure is carried out with a power of 125 W. The wand is reduced and removed. Hysteroscope was once again placed and the cavity appears to be uniformly blanched. All sponge needle and enhancement counts are correct. Patient is brought back to the recovery room in excellent condition with stable vital signs including blood pressure 133/90, pulse 86, 97% O2 saturation. Toradol is given prior to leaving the operative suite. She will follow-up with me in the office in 2 weeks.
[2022-02-01 10:39] VITALS: RESP 16; TEMP 96.8
[2022-02-01 11:29] VITALS: BP 155/85; PULSE 95
== END 2022-02-01 11:40 | disposition home or self-care (01) ==
LOC: OR 08:06
PROVIDERS: ATTEND Obstetrics & Gynecology
DX: D25.9 Leiomyoma of uterus, unspecified (principal); N84.0 Polyp of corpus uteri; N92.4 Excessive bleeding in the premenopausal period; E07.9 Disorder of thyroid, unspecified; J45.909 Unspecified asthma, uncomplicated; F41.9 Anxiety disorder, unspecified; F32.A Depression, unspecified; Z87.440 Personal history of urinary (tract) infections; F17.210 Nicotine dependence, cigarettes, uncomplicated; Z79.890 Hormone replacement therapy
CPT/HCPCS: 88305; 84703; 58563; J2250; J1100; J2405; J3010; J1885; J2704; J2001

== ENCOUNTER → 2022-07-27 | Outpatient (CLI) | payer OTHER ==
--- NOTE | 2022-07-28 16:08 | BD ---
EXAMINATION TYPE: Axial Bone Density DATE OF EXAM: 07/28/2022 CLINICAL HISTORY: 52 years old Female. ICD-10 CODE: C50.212 MALIG NEOPLASM OF UPPER-INN Z78.0 Post m enopausal wi Height: 64 Weight: 194 FRAX RISK QUESTIONS: Family History (Parent hip fracture): No History of Fracture in Adulthood: No Secondary Osteoporosis: Yes 3. Menopause before 45: 44 Rheumatoid Arthritis: No Current Tobacco Use: Yes RISK FACTORS HISTORY OF: Surgery to Hip(left): Yes When: 2019 Family History of Osteoporosis: Yes, paternal Grandma Active: Yes Diet low in dairy products/other sources of calcium: No Postmenopausal woman: Yes Lost more than 2 inches in height since high school: No Frequent falls: No Poor Health: No MEDICATIONS: Thyroid Medications: Which medication: Yes, Synthroid How Lon+ years Additional Medications: yes hbp, vit d, pain meds, allergy meds Additional History: Yes 2014 Left Breast Cancer, Chemo EXAM MEASUREMENTS: Bone mineral densitometry was performed using the Giveter System. Bone mineral density as measured about the Lumbar spine is: ----- L1-L4(G/cm2): 1.012 T Score Values are as follows: ----- L1: -3.0 ----- L2: -0.7 ----- L3: -0.7 ----- L4: -1.6 ----- L1-L4: -1.4 Z Score Values are as follows: ----- L1: -3.3 ----- L2: -1.0 ----- L3: -1.0 ----- L4: -1.9 ----- L1-L4: -1.7 Bone mineral density has: baseline Bone mineral density about the R hip (g/cm2): 0.947 T Score values are as follows: -----R Neck: -0.8 -----R Total: -0.5 Z Score values are as follows: -----R Neck: -0.5 -----R Total: -0.5 Bone mineral density: baseline FRAX%s: The graph provided illustrates a 3.9% chance for a major osteoporotic fx and a 0.3% chance fo r the hips probability for fx in 10 years time. IMPRESSION: Osteopenia (T Score between -2.5 and -1). There is slightly increased risk of fracture and the patient may be considered for treatment. Re-Screen 2-5 years. NOTE: T-SCORE=SD OF THE YOUNG ADULT MEAN.
== END | disposition home or self-care (01) ==
LOC: RADBDWWP 14:57
PROVIDERS: ATTEND Internal Medicine Hematology & Oncology
DX: C50.212 Malignant neoplasm of upper-inner quadrant of left female breast (principal); M81.0 Age-related osteoporosis without current pathological fracture; M85.89 Other specified disorders of bone density and structure, multiple sites; Z78.0 Asymptomatic menopausal state; Z72.0 Tobacco use
CPT/HCPCS: 77080

== ENCOUNTER → 2022-09-14 | Outpatient (CLI) | payer OTHER ==
--- NOTE | 2022-09-14 12:42 | US ---
EXAMINATION TYPE: US liver DATE OF EXAM: 09/14/2022 COMPARISON: CT 11/08/2021 CLINICAL INDICATION: Female, 52 years old with history of K76.0 FATTY (CHANGE OF) LIVER, NOT ELSEWHER E CLA; fatty liver TECHNIQUE: Multiple sonographic images of the right upper quadrant are obtained. FINDINGS: EXAM MEASUREMENTS: Liver Length: 18.3 cm Gallbladder Wall: 0.17 cm CBD: 0.39 cm Right Kidney: 12.8x5.6x6.0 cm Pancreas: Tail obscured by overlying bowel gas. Visualized portions show no gross abnormality. Liver: Increased attenuation. No focal lesion seen. Gallbladder: wnl Evidence for sonographic Mancini's sign: No CBD: wnl Right Kidney: No hydronephrosis or masses seen IMPRESSION: 1. Mild hepatomegaly with at least moderate hepatic steatosis. Correlate with LFTs, lipid profile, an d patient risk factors. 2. No gallstones or biliary ductal dilatation.
== END | disposition home or self-care (01) ==
LOC: RADUSWWP 06:58
PROVIDERS: ATTEND Internal Medicine Gastroenterology
DX: K76.0 Fatty (change of) liver, not elsewhere classified (principal); R16.0 Hepatomegaly, not elsewhere classified
CPT/HCPCS: 76705

== ENCOUNTER 2022-09-21 09:10 | Day surgery (SDC) | payer OTHER ==
[2022-09-20 09:15] VITALS: BMI 32.4
[2022-09-21] MEDS ORDERED: LACTATED RINGERS 1,000 ML IV SCH (09:15)
[2022-09-21] MEDS ORDERED: ONDANSETRON 4 MG/2 ML VIAL IVP PRN (09:15)
[2022-09-21] MEDS ORDERED: LIDOCAINE 1% (10MG/ML) FOR IV START INTRADERMA PRN (09:15)
[2022-09-21 09:34] VITALS: TEMP 98
[2022-09-21] MEDS ORDERED: PROPOFOL 10 MG/ML 20 ML VIAL IV ONE (09:48)
--- NOTE | 2022-09-21 10:06 | P.PCN ---
Date of Procedure: 09/21/22 Procedure(s) Performed: BRIEF HISTORY: Patient is a 52-year-old pleasant white female scheduled for an elective colonoscopy as a part of screening for colon cancer and strong family history of colon cancer. Her 2 maternal aunts were diagnosed with colon cancer in his 60s. Her younger sister was recently diagnosed with Alejandro syndrome on a genetic testing. Patient did not have any genetic testing. Her last colonoscopy was 5 years ago that was normal. PROCEDURE PERFORMED: Colonoscopy. PREOPERATIVE DIAGNOSIS: Screening for colon cancer/family history of colon cancer s and Lynchyndrome diagnosed in her sister. IV sedation per Anesthesia. PROCEDURE: After informed consent was obtained, the patient, was brought into the endoscopy unit. IV sedation was administered by Anesthesia under continuous monitoring. Digital rectal examination was normal. Initially the Olympus CF-160 flexible video colonoscope was then inserted in the rectum, gradually advanced into the cecum without any difficulty. Careful examination was performed as the scope was gradually being withdrawn. Ileocecal valve and the appendiceal orifice were visualized and appeared normal. Prep was excellent. Mucosa of the cecum, ascending colon, transverse colon, descending colon, sigmoid colon, and rectum appeared normal. Retroflexion was performed in the rectum and no lesions were seen. The patient tolerated the procedure well. IMPRESSION: Normal-appearing colon from rectum to cecum no evidence of colorectal neoplasia . RECOMMENDATIONS: Findings of this examination were discussed with the patient as well as a family. She was advised to have a repeat screening colonoscopy in 3 years for now. In the meantime recommended genetic testing for Alejandro syndrome and if it is positive she needs to have been colonoscopy every one to 2 years.
[2022-09-21 10:11] VITALS: RESP 12
[2022-09-21 10:24] VITALS: BP 128/81; PULSE 92
== END 2022-09-21 10:39 | disposition home or self-care (01) ==
LOC: ORWHC2ENDO 09:10
PROVIDERS: ATTEND Internal Medicine Gastroenterology
DX: Z12.11 Encounter for screening for malignant neoplasm of colon (principal); I10 Essential (primary) hypertension; G47.33 Obstructive sleep apnea (adult) (pediatric); F17.200 Nicotine dependence, unspecified, uncomplicated; E03.9 Hypothyroidism, unspecified; K74.60 Unspecified cirrhosis of liver; Z80.0 Family history of malignant neoplasm of digestive organs; Z79.899 Other long term (current) drug therapy
CPT/HCPCS: 45378; J2704

== ENCOUNTER 2022-10-11 20:05 | Emergency (ER) | payer OTHER ==
[2022-10-11 20:27] VITALS: TEMP 98.7
[2022-10-11 20:53] VITALS: BP 132/85; PULSE 92; RESP 18
[2022-10-11] MEDS ORDERED: MECLIZINE 12.5 MG TAB PO STA (21:52)
[2022-10-11 21:53] LABS: Basophils % (A) 1 %; Eosinophils # (A) 0.3 k/uL (0-0.7); Eosinophils % (A) 4 %; HCT 38.3 % (34.0-46.0); HGB 12.6 gm/dL (11.4-16.0); Lymphocytes # (A) 2.5 k/uL (1.0-4.8); Lymphocytes % (A) 30 %; MCH 30.7 pg (25.0-35.0); MCHC 32.8 g/dL (31.0-37.0); MCV 93.7 fL (80.0-100.0); Mean Platelet Volume 7.1; Monocytes # (A) 0.4 k/uL (0-1.0); Monocytes % (A) 5 %; Neutrophils # (A) 4.9 k/uL (1.3-7.7); Neutrophils % (A) 58 %; Platelet Count 304 k/uL (150-450); RBC 4.09 m/uL (3.80-5.40); WBC 8.4 k/uL (3.8-10.6)
--- NOTE | 2022-10-11 21:57 | ED ---
General Adult HPI - General Chief complaint: Chest Pain Stated complaint: chest pressure Source: patient Mode of arrival: ambulatory Limitations: no limitations - History of Present Illness Initial comments: Karon is a 52-year-old female who presents to the emergency department today for evaluation of 1 week of dizziness. Patient reports that throughout the week anytime she looks down or turns her head she has a spinning sensation. This spinning sensation stops with rest. Patient reports she's never had anything like this before. She's had no recent illness. She has no ringing in the ears. No hearing loss. No headache or vision change. Patient states that today she had both down multiple times taking patient's vital signs are Getting dizzy and having stabilizer supplement wall which prompted her come in the ER. Patient also states that throughout the week and maybe for 2 weeks she's been having a sensation of her left arm going to sleep it feels numb and tingly, feels better after she shakes it out. No recent injuries no neck pain. Upon arrival to the ER patient had told triage she was experiencing chest pressure however upon my evaluation she complains only of the dizziness and the numbness feeling sensation in her left shoulder and stated that she also thinks she has a UTI she has some dysuria. - Related Data Home Medications Medication Instructions Recorded Confirmed Montelukast [Singulair] 10 mg PO DAILY 11/07/14 10/11/22 Levothyroxine Sodium [Synthroid] 100 mcg PO DAILY 12/07/17 10/11/22 Cholecalciferol [Vitamin D3 (25 25 mcg PO DAILY 10/20/20 10/11/22 Mcg = 1000 Iu)] Cyanocobalamin (Vitamin B-12) 1,000 mcg PO DAILY 10/20/20 10/11/22 [Vitamin B-12] oxyCODONE-APAP 10-325MG [Percocet 1 tab PO BID PRN 10/20/20 10/11/22 10-325 mg] Letrozole 2.5 mg PO DAILY 08/23/21 10/11/22 lisinopriL [Zestril] 7.5 mg PO DAILY 09/20/22 10/11/22 Magnesium 200 mg PO DAILY 10/11/22 10/11/22 Potassium Gluconate 99 mg PO DAILY 10/11/22 10/11/22 Zinc Gluconate [Zinc] 50 mg PO DAILY 10/11/22 10/11/22 Previous Rx's Medication Instructions Recorded Meclizine [Antivert] 25 mg PO Q6H PRN #12 tab 10/11/22 Meclizine [Antivert] 25 mg PO Q6H PRN #12 tab 10/11/22 Sulfamethox-Tmp 800-160Mg [Bactrim 1 tab PO Q12HR #14 tab 10/11/22 DS 800-160 mg] Allergies Allergy/AdvReac Type Severity Reaction Status Date / Time phenazopyridine HCl Allergy Severe throat and Verified 10/11/22 21:49 [From Pyridium] lip swelling duloxetine AdvReac Altered Verified 10/11/22 21:49 Unknown Trigger Allergy Anaphylaxis Uncoded 09/20/22 09:18 Review of Systems ROS Statement: Those systems with pertinent positive or pertinent negative responses have been documented in the HPI. ROS Other: All systems not noted in ROS Statement are negative. 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 Hypothyroidism. Seasonal Allergies, ADHD, right foot neuropathy, diverticulosis, early liver cirrhosis. Uterine fibroids. "Get wicked hanh horses." History of Any Multi-Drug Resistant Organisms: None Reported Past Surgical History: Breast Surgery, Joint Replacement, Orthopedic Surgery, Tubal Ligation Additional Past Surgical History / Comment(s): Bilateral masctectomy with later reconstruction with silicone implants. Left ankle plate. Left hip replacement. COLONOSCOPY Past Anesthesia/Blood Transfusion Reactions: No Reported Reaction Additional Past Anesthesia/Blood Transfusion Reaction / Comment(s): "Hard to wake up sometimes, Mom has same issue." Past Psychological History: ADD/ADHD Smoking Status: Current every day smoker - Past Family History Mother Family Medical History: No Reported History Additional Family Medical History / Comment(s): Maternal great grandmother had breast cancer in a maternal grandmother had bladder cancer. Maternal aunt had colon cancer. Father Family Medical History: Hypertension Additional Family Medical History / Comment(s): Alcoholic. General Exam - General Exam Comments Initial Comments: Physical Exam GENERAL: Patient is well-developed and well-nourished. Patient is nontoxic and well-hydrated and is in no distress. HENT: Normocephalic, Atraumatic. EYES: PERRL, EOMI PULMONARY: Unlabored respirations. CARDIOVASCULAR: RRR Warm and well perfused extremities ABDOMEN: Non-distended SKIN: No rashes or bruising : Deferred NEUROLOGIC: Alert and oriented Normal speech Normal gait No provokable nystagmus on exam MUSCULOSKELETAL: Moving all extremities with no apparent injury PSYCHIATRIC: No SI/HI Limitations: no limitations Course Vital Signs 10/11/22 10/11/22 20:22 20:50 Temperature 98.7 F Pulse Rate 100 92 Respiratory 20 18 Rate Blood Pressure 167/86 132/85 O2 Sat by Pulse 99 96 Oximetry EKG Findings - EKG Comments: EKG Findings:: EKG interpreted by me, EKG was obtained at 2041, rate is 97 rhythm is sinus normal axis, normal intervals are no acute ST elevations or dep ressions there is no evidence of acute ischemia or infarction. Medical Decision Making - Medical Decision Making Was pt. sent in by a medical professional or institution (, PA, STUCCO PLASTERER, urgent care, hospital, or jail...) When possible be specific @ -[No] Did you speak to anyone other than the patient for history (EMS, parent, family, police, friend...)? What history was obtained from this source @ - Did you review nursing and triage notes (agree or disagree)? Why? @ -[I reviewed and agree with nursing and triage notes] Were old charts reviewed (outside hosp., previous admission, EMS record, old EKG, old radiological studies, urgent care reports/EKG's, jail records)? Report findings @ -Previous charts were reviewed Differential Diagnosis (chest pain, altered mental status, abdominal pain women, abdominal pain men, vaginal bleeding, weakness, fever, dyspnea, syncope, headache, dizziness, GI bleed, back pain, seizure, CVA, palpatations, mental health, musculoskeletal)? @ -[not applicable] EKG interpreted by me (3pts min.). @ -[As above] X-rays interpreted by me (1pt min.). @ -[None done] CT interpreted by me (1pt min.). @ -[None done] U/S interpreted by me (1pt. min.). @ -[None done] What testing was considered but not performed or refused? (CT, X-rays, U/S, labs)? Why? @ -Head CT was discussed however given the nature of the dizziness was determined to be peripheral therefore CT not indicated What meds were considered but not given or refused? Why? @ -[None] Did you discuss the management of the patient with other professionals (professionals i.e. , PA, STUCCO PLASTERER, lab, RT, psych nurse, social studies teacher, adolescent psychiatrist, teacher, police liaison officer, case briefer)? Give summary @ -[No] Was smoking cessation discussed for >3mins.? @ -[No] Was critical care preformed (if so, how long)? @ -[No] Were there social determinants of health that impacted care today? How? (Homelessness, low income, unemployed, alcoholism, drug addiction, transportation, low edu. Level, literacy, decrease access to med. care, custodial, rehab)? @ -[No] Was there de-escalation of care discussed even if they declined (Discuss DNR or withdrawal of care, Hospice)? DNR status @ -[No] What co-morbidities impacted this encounter? (DM, HTN, Smoking, COPD, CAD, Cancer, CVA, ARF, Chemo, Hep., AIDS, mental health diagnosis, sleep apnea, morbid obesity)? @ -[None] Was patient admitted / discharged? Hospital course, mention meds given and route, prescriptions, significant lab abnormalities, going to OR and other pertinent info. @ -Discharge Undiagnosed new problem with uncertain prognosis? @ -[No] Drug Therapy requiring intensive monitoring for toxicity (Heparin, Nitro, Insulin, Cardizem)? @ -[No] Were any procedures done? @ -[No] Diagnosis/symptom? @ -Benign peripheral vertigo Acute, or Chronic, or Acute on Chronic? @ -Acute Uncomplicated (without systemic symptoms) or Complicated (systemic symptoms)? @ -Uncomplicated Side effects of treatment? @ -[No] Exacerbation, Progression, or Severe Exacerbation? @ -[No] Poses a threat to life or bodily function? How? (Chest pain, USA, DC, pneumonia, PE, COPD, DKA, ARF, appy, cholecystitis, CVA, Diverticulitis, Homicidal, Suicidal, threat to staff... and all critical care pts) @ -[No] - Lab Data Result diagrams: 10/11/22 21:45 06/27/23 21:45 Lab Results 10/11/22 10/11/22 10/11/22 Range/Units 21:24 21:45 21:45 WBC 8.4 (3.8-10.6) k/uL RBC 4.09 (3.80-5.40) m/uL Hgb 12.6 (11.4-16.0) gm/dL Hct 38.3 (34.0-46.0) % MCV 93.7 (80.0-100.0) fL MCH 30.7 (25.0-35.0) pg MCHC 32.8 (31.0-37.0) g/dL RDW 13.0 (11.5-15.5) % Plt Count 304 (150-450) k/uL MPV 7.1 Neutrophils % 58 % Lymphocytes % 30 % Monocytes % 5 % Eosinophils % 4 % Basophils % 1 % Neutrophils # 4.9 (1.3-7.7) k/uL Lymphocytes # 2.5 (1.0-4.8) k/uL Monocytes # 0.4 (0-1.0) k/uL Eosinophils # 0.3 (0-0.7) k/uL Basophils # 0.0 (0-0.2) k/uL Sodium 139 (137-145) mmol/L Potassium 4.0 (3.5-5.1) mmol/L Chloride 105 (98-107) mmol/L Carbon Dioxide 24 (22-30) mmol/L Anion Gap 10 mmol/L BUN 19 H (7-17) mg/dL Creatinine 0.68 (0.52-1.04) mg/dL Est GFR (CKD-EPI)AfAm >90 (>60 ml/min/1.73 sqM) Est GFR (CKD-EPI)NonAf >90 (>60 ml/min/1.73 sqM) Glucose 120 H (74-99) mg/dL Calcium 8.8 (8.4-10.2) mg/dL Total Bilirubin 0.2 (0.2-1.3) mg/dL AST 27 (14-36) U/L ALT 28 (4-34) U/L Alkaline Phosphatase 105 (38-126) U/L Troponin I <0.012 (0.000-0.034) ng/mL Total Protein 6.8 (6.3-8.2) g/dL Albumin 4.0 (3.5-5.0) g/dL Urine Color Urine Appearance (Clear) Urine pH (5.0-8.0) Ur Specific [place] (1.001-1.035) Urine Protein (Negative) Urine Glucose (UA) (Negative) Urine Ketones (Negative) Urine Blood (Negative) Urine Nitrite (Negative) Urine Bilirubin (Negative) Urine Urobilinogen (<2.0) mg/dL Ur Leukocyte Esterase (Negative) Urine RBC (0-5) /hpf Urine WBC (0-5) /hpf Ur Squamous Epith Cells (0-4) /hpf Amorphous Sediment (None) /hpf Urine Bacteria (None) /hpf Hyaline Casts (0-2) /lpf Urine Mucus (None) /hpf 10/11/22 Range/Units 22:20 WBC (3.8-10.6) k/uL RBC (3.80-5.40) m/uL Hgb (11.4-16.0) gm/dL Hct (34.0-46.0) % MCV (80.0-100.0) fL MCH (25.0-35.0) pg MCHC (31.0-37.0) g/dL RDW (11.5-15.5) % Plt Count (150-450) k/uL MPV Neutrophils % % Lymphocytes % % Monocytes % % Eosinophils % % Basophils % % Neutrophils # (1.3-7.7) k/uL Lymphocytes # (1.0-4.8) k/uL Monocytes # (0-1.0) k/uL Eosinophils # (0-0.7) k/uL Basophils # (0-0.2) k/uL Sodium (137-145) mmol/L Potassium (3.5-5.1) mmol/L Chloride (98-107) mmol/L Carbon Dioxide (22-30) mmol/L Anion Gap mmol/L BUN (7-17) mg/dL Creatinine (0.52-1.04) mg/dL Est GFR (CKD-EPI)AfAm (>60 ml/min/1.73 sqM) Est GFR (CKD-EPI)NonAf (>60 ml/min/1.73 sqM) Glucose (74-99) mg/dL Calcium (8.4-10.2) mg/dL Total Bilirubin (0.2-1.3) mg/dL AST (14-36) U/L ALT (4-34) U/L Alkaline Phosphatase (38-126) U/L Troponin I (0.000-0.034) ng/mL Total Protein (6.3-8.2) g/dL Albumin (3.5-5.0) g/dL Urine Color Yellow Urine Appearance Clear (Clear) Urine pH 5.5 (5.0-8.0) Ur Specific [place] 1.025 (1.001-1.035) Urine Protein Trace H (Negative) Urine Glucose (UA) Negative (Negative) Urine Ketones Negative (Negative) Urine Blood Moderate H (Negative) Urine Nitrite Negative (Negative) Urine Bilirubin Negative (Negative) Urine Urobilinogen <2.0 (<2.0) mg/dL Ur Leukocyte Esterase Small H (Negative) Urine RBC 2 (0-5) /hpf Urine WBC 4 (0-5) /hpf Ur Squamous Epith Cells 5 H (0-4) /hpf Amorphous Sediment Occasional H (None) /hpf Urine Bacteria Occasional H (None) /hpf Hyaline Casts 7 H (0-2) /lpf Urine Mucus Rare H (None) /hpf Disposition Clinical Impression: BPPV (benign paroxysmal positional vertigo), Dysuria Disposition: HOME SELF-CARE Condition: Stable Instructions (If sedation given, give patient instructions): Benign Paroxysmal Positional Vertigo (DC) Is patient prescribed a controlled substance at d/c from ED?: No Referrals: Prashanth De Anda Jr, DO [Primary Care Provider] - 1-2 days Sarabjit Wilkinson MD [STAFF PHYSICIAN] - 1-2 days
[2022-10-11 21:59] LABS: ALT 28 U/L (4-34); AST 27 U/L (14-36); African American GFR (CKD) >90 (>60 ml/min/1.73 sqM); Alkaline Phosphatase 105 U/L (38-126); Anion Gap 10 mmol/L; Blood Urea Nitrogen 19 mg/dL (7-17); Calcium 8.8 mg/dL (8.4-10.2); Carbon Dioxide 24 mmol/L (22-30); Chloride 105 mmol/L (98-107); Glucose 120 mg/dL (74-99); Non-African American GFR(CKD) >90 (>60 ml/min/1.73 sqM); Sodium 139 mmol/L (137-145); Total Bilirubin 0.2 mg/dL (0.2-1.3); Total Protein 6.8 g/dL (6.3-8.2)
[2022-10-11 22:40] LABS: Amorphous Sediment,Urine Occasional /hpf; Appearance,Urine Clear (Clear); Bacteria,Urine Occasional /hpf; Bilirubin,Urine Negative (Negative); Blood,Urine Moderate (Negative); Color,Urine Yellow; Glucose,Urine (UA) Negative (Negative); Hyaline Casts,Urine 7 /lpf (0-2); Ketones,Urine Negative (Negative); Leukocyte Esterase,Urine Small (Negative); Mucus,Urine Rare /hpf; Nitrite,Urine Negative (Negative); PH, Urine 5.5 (5.0-8.0); Protein,Urine Trace (Negative); RBC,Urine 2 /hpf (0-5); Specific Gravity,Urine 1.025 (1.001-1.035); Squamous Epithelial Cell,Urine 5 /hpf (0-4); Urobilinogen,Urine <2.0 mg/dL (<2.0); WBC,Urine 4 /hpf (0-5)
== END 2022-10-11 23:46 | disposition home or self-care (01) ==
LOC: EC 20:05
DX: H81.10 Benign paroxysmal vertigo, unspecified ear (principal); R30.0 Dysuria; I10 Essential (primary) hypertension; E03.9 Hypothyroidism, unspecified; F90.9 Attention-deficit hyperactivity disorder, unspecified type; F17.200 Nicotine dependence, unspecified, uncomplicated; Z79.890 Hormone replacement therapy; Z79.899 Other long term (current) drug therapy; Z88.6 Allergy status to analgesic agent; Z88.8 Allergy status to other drugs, medicaments and biological substances
CPT/HCPCS: 36415; 80053; 81001; 84484; 85025; 99285

== ENCOUNTER 2022-10-22 08:34 | Emergency (ER) | payer OTHER ==
[2022-10-22 08:42] VITALS: BP 126/78; PULSE 92; RESP 18; TEMP 98
[2022-10-22] MEDS ORDERED: FLUTICASONE 50MCG/SPRAY NASAL 16GM EA NOSTRIL STA (08:54)
--- NOTE | 2022-10-22 09:06 | ED ---
Recheck HPI - General Chief Complaint: Recheck/Abnormal Lab/Rx Stated Complaint: Allergic Reaction Time Seen by Provider: 10/22/22 08:44 Source: patient, RN notes reviewed, old records reviewed Mode of arrival: ambulatory Limitations: no limitations - History of Present Illness Initial Comments: This is a nontoxic-appearing 52-year-old female that presents with complaints of sinus congestion since yesterday after work and itchy eyes. States did take Benadryl yesterday with relief and then woke up this morning with similar symptoms. She did taken Benadryl this morning and is starting to get relief. She does have a history of seasonal ALLERGIES and occasionally takes Zyrtec, denies any fevers or sore throat. No pain. No difficulty breathing or difficulty swallowing. No nausea vomiting or diarrhea. MD Complaint: other (nasal congestion and eye itching since last night) -: days(s) (1) Treatments Prior to Arrival: other (benadryl this morning with relief) - Related Data Home Medications Medication Instructions Recorded Confirmed Montelukast [Singulair] 10 mg PO DAILY 11/07/14 10/11/22 Levothyroxine Sodium [Synthroid] 100 mcg PO DAILY 12/07/17 10/11/22 Cholecalciferol [Vitamin D3 (25 25 mcg PO DAILY 10/20/20 10/11/22 Mcg = 1000 Iu)] Cyanocobalamin (Vitamin B-12) 1,000 mcg PO DAILY 10/20/20 10/11/22 [Vitamin B-12] oxyCODONE-APAP 10-325MG [Percocet 1 tab PO BID PRN 10/20/20 10/11/22 10-325 mg] Letrozole 2.5 mg PO DAILY 08/23/21 10/11/22 lisinopriL [Zestril] 7.5 mg PO DAILY 09/20/22 10/11/22 Magnesium 200 mg PO DAILY 10/11/22 10/11/22 Potassium Gluconate 99 mg PO DAILY 10/11/22 10/11/22 Zinc Gluconate [Zinc] 50 mg PO DAILY 10/11/22 10/11/22 Previous Rx's Medication Instructions Recorded Meclizine [Antivert] 25 mg PO Q6H PRN #12 tab 10/11/22 Meclizine [Antivert] 25 mg PO Q6H PRN #12 tab 10/11/22 Sulfamethox-Tmp 800-160Mg [Bactrim 1 tab PO Q12HR #14 tab 10/11/22 DS 800-160 mg] Sulfamethox-Tmp 800-160Mg [Bactrim 1 tab PO Q12HR #14 tab 10/11/22 DS 800-160 mg] Allergies Allergy/AdvReac Type Severity Reaction Status Date / Time phenazopyridine HCl Allergy Severe throat and Verified 10/22/22 08:42 [From Pyridium] lip swelling duloxetine AdvReac Altered Verified 10/22/22 08:42 Unknown Trigger Allergy Anaphylaxis Uncoded 10/22/22 08:42 Review of Systems ROS Statement: Those systems with pertinent positive or pertinent negative responses have been documented in the HPI. ROS Other: All systems not noted in ROS Statement are negative. 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 Hypothyroidism. Seasonal Allergies, ADHD, right foot neuropathy, diverticulosis, early liver cirrhosis. Uterine fibroids. "Get wicked hanh horses." History of Any Multi-Drug Resistant Organisms: None Reported Past Surgical History: Breast Surgery, Joint Replacement, Orthopedic Surgery, Tubal Ligation Additional Past Surgical History / Comment(s): Bilateral masctectomy with later reconstruction with silicone implants. Left ankle plate. Left hip replacement. COLONOSCOPY Past Anesthesia/Blood Transfusion Reactions: No Reported Reaction Additional Past Anesthesia/Blood Transfusion Reaction / Comment(s): "Hard to wake up sometimes, Mom has same issue." Past Psychological History: ADD/ADHD Smoking Status: Current every day smoker Past Alcohol Use History: None Reported Past Drug Use History: None Reported - Past Family History Mother Family Medical History: No Reported History Additional Family Medical History / Comment(s): Maternal great grandmother had breast cancer in a maternal grandmother had bladder cancer. Maternal aunt had colon cancer. Father Family Medical History: Hypertension Additional Family Medical History / Comment(s): Alcoholic. General Exam Limitations: no limitations General appearance: alert, in no apparent distress Head exam: Present: atraumatic Eye exam: Present: EOMI, conjunctival injection (bilateral). Absent: scleral icterus, nystagmus, periorbital swelling, periorbital tenderness ENT exam: Present: normal oropharynx, mucous membranes moist Expanded Mouth exam: Present: normal external inspection, tongue normal, tongue elevation. Absent: drooling, trismus, muffled voice Throat exam: normal inspection. negative: tonsillar erythema, R peritonsillar mass, L peritonsillar mass Neck exam: Present: normal inspection, full ROM. Absent: tenderness, meningismus, lymphadenopathy, thyromegaly Respiratory exam: Present: normal lung sounds bilaterally. Absent: respiratory distress, accessory muscle use Cardiovascular Exam: Present: regular rate Extremities exam: Present: normal capillary refill Neurological exam: Present: alert, oriented X3 Psychiatric exam: Present: normal affect, normal mood Skin exam: Present: warm, dry, normal color. Absent: cyanosis, diaphoretic, petechiae, pallor Course Vital Signs 10/22/22 08:39 Temperature 98 F Pulse Rate 92 Respiratory 18 Rate Blood Pressure 126/78 O2 Sat by Pulse 97 Oximetry Medical Decision Making - Medical Decision Making Was pt. sent in by a medical professional or institution ([facility], [employer]PERATOR, urgent care, hospital, or group home...) When possible be specific @ -No Did you speak to anyone other than the patient for history (EMS, parent, family, police, friend...)? What history was obtained from this source @ -No Did you review nursing and triage notes (agree or disagree)? Why? @ -I reviewed and agree with nursing and triage notes Were old charts reviewed (outside hosp., previous admission, EMS record, old EKG, old radiological studies, urgent care reports/EKG's, group home records)? Report findings @ -No old charts were reviewed Differential Diagnosis (chest pain, altered mental status, abdominal pain women, abdominal pain men, vaginal bleeding, weakness, fever, dyspnea, syncope, headache, dizziness, GI bleed, back pain, seizure, CVA, palpatations, mental health, musculoskeletal)? @ -Seasonal ALLERGIES, ALLERGIC reaction, URI EKG interpreted by me (3pts min.). @ -n/a X-rays interpreted by me (1pt min.). @ -None done CT interpreted by me (1pt min.). @ -None done U/S interpreted by me (1pt. min.). @ -None done What testing was considered but not performed or refused? (CT, X-rays, U/S, labs)? Why? @ -None What meds were considered but not given or refused? Why? @ -Oral decongestant was considered however patient does have hypertension Did you discuss the management of the patient with other professionals (professionals i.e. , PA, [employer] M[employer]ER OPERATOR, lab, RT, psych nurse, social service agency director, secondary school principal, teacher, booking officer, patient case coordinator)? Give summary @ -No Was smoking cessation discussed for >3mins.? @ -No Was critical care preformed (if so, how long)? @ -No Were there social determinants of health that impacted care today? How? (Homelessness, low income, unemployed, alcoholism, drug addiction, transportation, low edu. Level, literacy, decrease access to med. care, detention, rehab)? @ -No Was there de-escalation of care discussed even if they declined (Discuss DNR or withdrawal of care, Hospice)? DNR status @ -No What co-morbidities impacted this encounter? (DM, HTN, Smoking, COPD, CAD, Cancer, CVA, ARF, Chemo, Hep., AIDS, mental health diagnosis, sleep apnea, morbid obesity)? @ -History of breast cancer, hypertension, liver disease, ADHD, hypothyroidism, neuropathy, smoker Was patient admitted / discharged? Hospital course, mention meds given and route, prescriptions, significant lab abnormalities, going to OR and other pertinent info. @ -Discharged This is a nontoxic-appearing 52-year-old female that presents with complaints of sinus congestion since yesterday after work and itchy eyes. States did take Benadryl yesterday with relief and then woke up this morning with similar sympto ms. She did taken Benadryl this morning and is starting to get relief. She does have a history of seasonal ALLERGIES and occasionally takes Zyrtec, denies any fevers or sore throat. No pain. No difficulty breathing or difficulty swallowing. No nausea vomiting or diarrhea. Physical examination lungs sounds are clear to auscultation. There is no evidence of tonsillar erythema or edema. No difficulty swallowing. Bilateral conjunctival injection noted. No discharge. Patient states symptoms have improved since taking Benadryl. This is likely seasonal ALLERGIES. Patient was given Flonase in the emergency room. Directed to continue taking Zyrtec and Flonase daily. Follow up with her primary care doctor as week. Return with any new or concerning symptoms. Patient is agreeable to this plan of care. Case discussed with Dr. Nuñez Undiagnosed new problem with uncertain prognosis? @ -No Drug Therapy requiring intensive monitoring for toxicity (Heparin, Nitro, Insulin, Cardizem)? @ -No Were any procedures done? @ -No Diagnosis/symptom? @ -Seasonal ALLERGIES Acute, or Chronic, or Acute on Chronic? @ -Acute on chronic Uncomplicated (without systemic symptoms) or Complicated (systemic symptoms)? @ -Uncomplicated Side effects of treatment? @ -No Exacerbation, Progression, or Severe Exacerbation? @ -No Poses a threat to life or bodily function? How? (Chest pain, USA, ID, pneumonia, PE, COPD, DKA, ARF, appy, cholecystitis, CVA, Diverticulitis, Homicidal, Suici barry, threat to staff... and all critical care pts) @ -No Disposition Clinical Impression: Seasonal allergies Disposition: HOME SELF-CARE Condition: Good Instructions (If sedation given, give patient instructions): Allergies (ED) Additional Instructions: Use Zyrtec and Flonase daily. Follow-up with your primary care doctor as needed. Return to the emergency room with any new or concerning symptoms. Is patient prescribed a controlled substance at d/c from ED?: No Referrals: Prashanth D eAnda Jr, DO [Primary Care Provider] - 1-2 days Time of Disposition: 08:59
== END 2022-10-22 09:15 | disposition home or self-care (01) ==
LOC: EC 08:34
DX: J30.2 Other seasonal allergic rhinitis (principal); I10 Essential (primary) hypertension; E03.9 Hypothyroidism, unspecified; F17.200 Nicotine dependence, unspecified, uncomplicated; Z79.890 Hormone replacement therapy; Z79.899 Other long term (current) drug therapy; Z88.8 Allergy status to other drugs, medicaments and biological substances
CPT/HCPCS: 99283

== ENCOUNTER 2022-11-12 14:53 | Emergency (ER) | payer OTHER ==
--- NOTE | 2022-11-12 15:32 | ED ---
General Adult HPI - General Chief complaint: Fall Stated complaint: Fall, Head Injury Time Seen by Provider: 11/12/22 15:28 Source: patient Mode of arrival: ambulatory Limitations: no limitations - History of Present Illness Initial comments: Patient presents to the ED (ambulatory) for evaluation status post sustaining a fall about an hour ago while at work. Patient states that her shoe got caught on a piece of rubber on a step as she was going down the stairs, causing her to fall down about 6-7 steps. Patient is unsure of exactly how she fell, but she states that she hit the back of her head on the concrete wall at the bottom of the steps. Patient is unsure of LOC. Patient is currently complaining of having an occipital headache, left elbow, left knee, bilateral harrington, and lumbar back pain. Patient denies anticoagulant medication use. Patient denies alcohol or illicit drug use. Patient denies any other injury or site of pain or injury, focal numbness/weakness/neuro deficit, visual changes, neck/upper back pain, chest pain, dyspnea, palpitations, dizziness, abdominal pain, nausea or vomiting, hip pain, or any other symptoms or complaints. - Related Data Home Medications Medication Instructions Recorded Confirmed Montelukast [Singulair] 10 mg PO DAILY 11/07/14 10/11/22 Levothyroxine Sodium [Synthroid] 100 mcg PO DAILY 12/07/17 10/11/22 Cholecalciferol [Vitamin D3 (25 25 mcg PO DAILY 10/20/20 10/11/22 Mcg = 1000 Iu)] Cyanocobalamin (Vitamin B-12) 1,000 mcg PO DAILY 10/20/20 10/11/22 [Vitamin B-12] oxyCODONE-APAP 10-325MG [Percocet 1 tab PO BID PRN 10/20/20 10/11/22 10-325 mg] Letrozole 2.5 mg PO DAILY 08/23/21 10/11/22 lisinopriL [Zestril] 7.5 mg PO DAILY 09/20/22 10/11/22 Magnesium 200 mg PO DAILY 10/11/22 10/11/22 Potassium Gluconate 99 mg PO DAILY 10/11/22 10/11/22 Zinc Gluconate [Zinc] 50 mg PO DAILY 10/11/22 10/11/22 Previous Rx's Medication Instructions Recorded Meclizine [Antivert] 25 mg PO Q6H PRN #12 tab 10/11/22 Meclizine [Antivert] 25 mg PO Q6H PRN #12 tab 10/11/22 Sulfamethox-Tmp 800-160Mg [Bactrim 1 tab PO Q12HR #14 tab 10/11/22 DS 800-160 mg] Sulfamethox-Tmp 800-160Mg [Bactrim 1 tab PO Q12HR #14 tab 10/11/22 DS 800-160 mg] Allergies Allergy/AdvReac Type Severity Reaction Status Date / Time phenazopyridine HCl Allergy Severe throat and Verified 10/24/22 09:02 [From Pyridium] lip swelling lisinopril Allergy Unknown Verified 11/12/22 15:20 duloxetine AdvReac Altered Verified 10/24/22 09:02 Unknown Trigger Allergy Anaphylaxis Uncoded 10/24/22 09:02 Review of Systems ROS Statement: Those systems with pertinent positive or pertinent negative responses have been documented in the HPI. ROS Other: All systems not noted in ROS Statement are negative. 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 Hypothyroidism. Seasonal Allergies, ADHD, right foot neuropathy, diverticulosis, early liver cirrhosis. Uterine fibroids. "Get wicked hanh horses." History of Any Multi-Drug Resistant Organisms: None Reported Past Surgical History: Breast Surgery, Joint Replacement, Orthopedic Surgery, Tubal Ligation Additional Past Surgical History / Comment(s): Bilateral masctectomy with later reconstruction with silicone implants. Left ankle plate. Left hip replacement. COLONOSCOPY Past Anesthesia/Blood Transfusion Reactions: No Reported Reaction Additional Past Anesthesia/Blood Transfusion Reaction / Comment(s): "Hard to wake up sometimes, Mom has same issue." Past Psychological History: ADD/ADHD Smoking Status: Current every day smoker Past Alcohol Use History: None Reported Past Drug Use History: None Reported - Past Family History Mother Family Medical History: No Reported History Additional Family Medical History / Comment(s): Maternal great grandmother had breast cancer in a maternal grandmother had bladder cancer. Maternal aunt had colon cancer. Father Family Medical History: Hypertension Additional Family Medical History / Comment(s): Alcoholic. General Exam Limitations: no limitations General appearance: alert, in no apparent distress Head exam: Present: other (Mild occipital scalp swelling and tenderness) Eye exam: Present: normal appearance, PERRL, EOMI ENT exam: Present: mucous membranes moist, TM's normal bilaterally Neck exam: Present: normal inspection, full ROM, other (Trachea is in midline). Absent: tenderness Respiratory exam: Present: normal lung sounds bilaterally. Absent: respiratory distress, wheezes, rales, rhonchi, stridor, chest wall tenderness Cardiovascular Exam: Present: regular rate, normal rhythm, normal heart sounds, other (Normal radial and dorsalis pedis pulses bilaterally) GI/Abdominal exam: Present: soft. Absent: distended, tenderness, guarding Extremities exam: Present: full ROM, other (Pelvis is stable and nontender; patient has full range of motion at all joints; mild posterior left elbow tenderness; mild anterior left knee tenderness; ecchymosis and tenderness is noted over bilateral tibias proximally) Back exam: Present: full ROM, other (right lumbar paraspinal ecchymosis and tenderness). Absent: CVA tenderness (R), CVA tenderness (L) Neurological exam: Present: alert, oriented X3, CN II-XII intact. Absent: motor sensory deficit Psychiatric exam: Present: normal affect, normal mood Skin exam: Present: warm, dry, intact, normal color Course Vital Signs 11/12/22 15:14 Temperature 97.7 F Pulse Rate 81 Respiratory 18 Rate Blood Pressure 129/85 O2 Sat by Pulse 97 Oximetry - Reevaluation(s) Reevaluation #1: 11/12/22 17:45 Patient denies development of any new pain or symptoms while in the ED. Patient is aware of her negative imaging studies, and she feels comfortable being dis charged home at this time. Patient was counseled about head injuries and contusions, and she was clearly explained return and follow-up instructions. Patient was instructed to follow up closely with her primary care provider. Medical Decision Making - Medical Decision Making Was pt. sent in by a medical professional or institution (, PA, [employer], urgent care, hospital, or detention...) When possible be specific @ -No Did you speak to anyone other than the patient for history (EMS, parent, family, police, friend...)? What history was obtained from this source @ -No Did you review nursing and triage notes (agree or disagree)? Why? @ -I reviewed and agree with nursing and triage notes Were old charts reviewed (outside hosp., previous admission, EMS record, old EKG, old radiological studies, urgent care reports/EKG's, detention records)? Report findings @ -No old charts were reviewed Differential Diagnosis (chest pain, altered mental status, abdominal pain women, abdominal pain men, vaginal bleeding, weakness, fever, dyspnea, syncope, headache, dizziness, GI bleed, back pain, seizure, CVA, palpatations, mental health, musculoskeletal)? @ -Fall, contusion, head injury, intracranial hemorrhage, fracture, concussion, hematoma, sprain, strain EKG interpreted by me (3pts min.). @ -None done X-rays interpreted by me (1pt min.). @ -Patient's left elbow, left knee, bilateral tib/fib and lumbosacral spine x- rays were all reviewed myself and show no acute fracture/dislocation. I agree with the radiologist's interpretations as above. CT interpreted by me (1pt min.). @ -Patient's noncontrast head CT was reviewed myself and shows no acute abnormality. I agree with the radiologist's interpretation as above. U/S interpreted by me (1pt. min.). @ -None done What testing was considered but not performed or refused? (CT, X-rays, U/S, labs)? Why? @ -None What meds were considered but not given or refused? Why? @ -None Did you discuss the management of the patient with other professionals (professionals i.e. , PA, [employer], lab, RT, psych nurse, clinical social work aide, assistant curator, teacher, parking enforcement officer, ed case manager)? Give summary @ -No Was smoking cessation discussed for >3mins.? @ -No Was critical care preformed (if so, how long)? @ -No Were there social determinants of health that impacted care today? How? (Homelessness, low income, unemployed, alcoholism, drug addiction, rausch sportation, low edu. Level, literacy, decrease access to med. care, care home, rehab)? @ -No Was there de-escalation of care discussed even if they declined (Discuss DNR or withdrawal of care, Hospice)? DNR status @ -No What co-morbidities impacted this encounter? (DM, HTN, Smoking, COPD, CAD, Cancer, CVA, ARF, Chemo, Hep., AIDS, mental health diagnosis, sleep apnea, morbid obesity)? @ -None Was patient admitted / discharged? Hospital course, mention meds given and route, prescriptions, significant lab abnormalities, going to OR and other pertinent info. @ -Patient is alert and breathing comfortably in the ED. Patient denies development of any new pain or symptoms while in the ED. Patient's pain has been treated with a dose of ibuprofen in the ED. Patient's imaging studies are all negative. Patient is aware of her negative imaging studies, and she feels c omfortable being discharged home at this time. Will discharge patient home at this time with clear return and follow-up instructions given. Undiagnosed new problem with uncertain prognosis? @ -No Drug Therapy requiring intensive monitoring for toxicity (Heparin, Nitro, Insulin, Cardizem)? @ -No Were any procedures done? @ -No Diagnosis/symptom? @ -Fall with head injury Acute, or Chronic, or Acute on Chronic? @ -Acute Uncomplicated (without systemic symptoms) or Complicated (systemic symptoms)? @ -Uncomplicated Side effects of treatment? @ -No Exacerbation, Progression, or Severe Exacerbation? @ -No Poses a threat to life or bodily function? How? (Chest pain, USA, CA, pneumonia, PE, COPD, DKA, ARF, appy, cholecystitis, CVA, Diverticulitis, Homicidal, Suicidal, threat to staff... and all critical care pts) @ -No Diagnosis/symptom? @ -Multiple contusions Acute, or Chronic, or Acute on Chronic? @ -Acute Uncomplicated (without systemic symptoms) or Complicated (systemic symptoms)? @ -Uncomplicated Side effects of treatment? @ -none Exacerbation, Progression, or Severe Exacerbation] @ -no Poses a threat to life or bodily function? @ -no - Radiology Data Noncontrast head CT: No acute intracranial process. Left elbow x-rays: No evidence of acute fracture. Left knee x-rays: No acute osseous pathology. Bilateral tib/fib x-rays: No evidence of acute fracture. Lumbosacral spine x-rays: 1. No acute process. 2. Mild multilevel degenerative disease most pronounced at L5-S1. Disposition Clinical Impression: Fall, Head injury, Multiple contusions Disposition: HOME SELF-CARE Condition: Stable Instructions (If sedation given, give patient instructions): Fall Prevention (ED), Head Injury (ED), Contusion in Adults (ED) Additional Instructions: Return to the ER immediately should you develop new or worsening pain, shortness of breath, feeling dizzy or faint, or new or worsening symptoms. Follow up closely with your primary care provider. Is patient prescribed a controlled substance at d/c from ED?: No Referrals: Prashanth De Anda Jr, [Primary Care Provider] - 1-2 days Time of Disposition: 17:50
--- NOTE | 2022-11-12 16:14 | XR ---
EXAMINATION TYPE: XR tibia fibula bilateral DATE OF EXAM: 11/12/2022 4:09 PM INDICATION: Patient age:Female; 52 years old; Reason for study: fall, injury; [facility]. COMPARISON: Left knee radiograph 11/12/2022 TECHNIQUE: Both tibia/fibula were examined in AP and lateral projections. FINDINGS: No evidence of any acute osseous pathology, joint dislocation, or soft tissue swelling is n oted. Prominent collateral vasculature suggested within the right lower extremity. IMPRESSION: No evidence of acute fracture.
--- NOTE | 2022-11-12 16:15 | XR ---
EXAMINATION TYPE: XR knee complete LT DATE OF EXAM: 11/12/2022 4:09 PM INDICATION: Patient age:Female; 52 years old; Reason for study: fall, injury; [facility]. COMPARISON: Bilateral tibia-fibula radiographs of the same date. TECHNIQUE: The Left knee(s) was examined in frontal, lateral, and oblique projections. FINDINGS: No evidence of any acute osseous pathology, joint space narrowing, soft tissue swelling, or joint effusion is noted. IMPRESSION: No acute osseous pathology.
--- NOTE | 2022-11-12 16:16 | XR ---
EXAMINATION TYPE: XR elbow complete LT DATE OF EXAM: 11/12/2022 4:09 PM INDICATION: Patient age:Female; 52 years old; Reason for study: fall, injury; [facility]. COMPARISON: None TECHNIQUE: The left elbow was examined in AP, lateral, and oblique projections. FINDINGS: No evidence of any acute osseous pathology, joint dislocation, or soft tissue swelling is n oted. No evidence of joint effusion is present. IMPRESSION: No evidence of acute fracture.
--- NOTE | 2022-11-12 16:18 | XR ---
EXAMINATION TYPE: XR lumbosacral spine min 4V DATE OF EXAM: 11/12/2022 4:09 PM INDICATION: Patient age:Female; 52 years old; Reason for study: fall, back pain; [facility]. COMPARISON: CT lumbar spine 10/31/2022 TECHNIQUE: Frontal, lateral , bilateral oblique and coned in L5-S1 lateral views of the spine. FINDINGS: There are 5 lumbar type vertebral bodies identified. No evidence of any acute osseous patho logy. No evidence of loss of vertebral body height is seen. Mild multilevel degenerative disc diseas e most pronounced at L5-S1 with disc space narrowing, endplate sclerosis, anterior osteophytosis, and vacuum disc disease. Minimal levo curvature of the lumbar spine. Bilateral tubal ligation clips. IMPRESSION: 1. No acute process. 2. Mild multilevel degenerative disease most pronounced at L5-S1.
--- NOTE | 2022-11-12 16:48 | CT ---
EXAMINATION TYPE: CT brain wo con CT DLP: 1165.6 mGycm, Automated exposure control for dose reduction was used. DATE OF EXAM: 11/12/2022 4:43 PM COMPARISON: None. Prior CT Brain from . CLINICAL INDICATION:Female, 52 years old with history of fall, head injury, fell, hit head TECHNIQUE: Brain: Multiple axial CT images of the brain were obtained without IV contrast. Coronal and sagittal reformats reviewed. FINDINGS: Brain: Extra-axial spaces: No abnormal extra-axial fluid collections. Ventricular system: Within normal limits Cerebral parenchyma: No acute intraparenchymal hemorrhage or mass effect. The guadalupe-white junction is well differentiated. Cerebellum: Unremarkable. Mass effect: No evidence of midline shift. Intracranial vasculature: unremarkable Soft tissues: Normal. Calvarium/osseous structures: No depressed skull fracture. Paranasal sinuses and mastoid air cells: Clear Visualized orbits: Orbital contents are intact. IMPRESSION: No acute intracranial process.
[2022-11-12] MEDS ORDERED: IBUPROFEN 800 MG TAB PO STA (17:35)
[2022-11-12 17:53] VITALS: BP 109/81; PULSE 85; RESP 17; TEMP 98.5
== END 2022-11-12 18:22 | disposition home or self-care (01) ==
LOC: EC 14:53
DX: S00.93XA Contusion of unspecified part of head, initial encounter (principal); M51.37 Other intervertebral disc degeneration, lumbosacral region; I10 Essential (primary) hypertension; E03.9 Hypothyroidism, unspecified; F17.200 Nicotine dependence, unspecified, uncomplicated; Z86.59 Personal history of other mental and behavioral disorders; Z79.890 Hormone replacement therapy; Z79.899 Other long term (current) drug therapy; Z88.6 Allergy status to analgesic agent; Z88.8 Allergy status to other drugs, medicaments and biological substances; W10.9XXA Fall (on) (from) unspecified stairs and steps, initial encounter
CPT/HCPCS: 70450; 72110; 99284

== ENCOUNTER 2024-07-15 07:47 | Emergency (ER) | payer BC, OTHER ==
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
--- NOTE | 2024-07-15 08:45 | XR ---
EXAMINATION TYPE: XR ribs RT w pa chest xray DATE OF EXAM: 07/15/2024 8:38 AM COMPARISON: Prior chest x-ray December 11, 2019 CLINICAL INDICATION: Female, 54 years old with history of trauma/pain; PHH, pain TECHNIQUE: XR ribs RT w pa chest xray; Frontal and oblique views of the ribs with frontal chest radio graph. FINDINGS: The ribs have a normal appearance. No evidence of fracture. Overall, the lungs are clear. The cardiac silhouette is upper limits of normal in size. The remaini ng osseous structures are intact. IMPRESSION: No acute displaced right rib fracture. No acute cardiopulmonary process. [facility], , 07/15/2024 8:43 AM
[2024-07-15 09:09] VITALS: BP 125/80; PULSE 92; RESP 22; TEMP 98
== END 2024-07-15 09:33 | disposition home or self-care (01) ==
LOC: EC 07:47
DX: S22.31XA Fracture of one rib, right side, initial encounter for closed fracture (principal); F17.200 Nicotine dependence, unspecified, uncomplicated; Z88.8 Allergy status to other drugs, medicaments and biological substances; Y04.8XXA Assault by other bodily force, initial encounter
CPT/HCPCS: 99284

== ENCOUNTER → 2024-08-01 | Outpatient (CLI) | payer OTHER ==
--- NOTE | 2024-08-01 10:45 | XR ---
EXAMINATION TYPE: XR chest 2V, XR ribs 4 views RT DATE OF EXAM: 08/01/2024 10:23 AM COMPARISON: 08/01/2024 CLINICAL INDICATION: Female, 54 years old with history of S20.20XD contusion chest wall, pain, FINDINGS: Chest: Heart upper limits of normal in size. Mild interstitial prominence of a chronic appearance. Hazy lowe r lung densities relating to overlying soft tissue. No consolidation, pneumothorax, or pleural effusi on. Right RIBS: Fourth and fifth anterolateral ribs are mildly displaced. Additional nondisplaced right mildly angula ingrid fractures of the right anterolateral sixth through ninth ribs. IMPRESSION: 1. Chest: Chronic appearing changes. No definite acute process. 2. Right RIBS: Fractures of the right anterolateral fourth through ninth ribs. The fourth and fifth r ib fractures are mildly displaced. The other fractures are minimally angulated. [facility], Workstation: [facility], 08/01/2024 10:43 AM
== END | disposition home or self-care (01) ==
LOC: RADXRMAIN 09:50
PROVIDERS: ATTEND Emergency Medicine
DX: S22.41XD Multiple fractures of ribs, right side, subsequent encounter for fracture with routine healing (principal); S20.20XD Contusion of thorax, unspecified, subsequent encounter; X58.XXXD Exposure to other specified factors, subsequent encounter
CPT/HCPCS: 71046

== ENCOUNTER → 2024-08-09 | Outpatient (CLI) | payer OTHER ==
--- NOTE | 2024-08-09 12:12 | XR ---
EXAMINATION TYPE: XR pelvis AP view DATE OF EXAM: 08/09/2024 12:07 PM COMPARISON: None. CLINICAL INDICATION: Female, 54 years old with history of R52 pain/contusion, pain TECHNIQUE: AP view(s) obtained. FINDINGS: Left hip prosthesis is present. There is moderate degenerative changes of the right hip joint space. Sacroiliac joints and symphysis pubis appear normal. No acute fractures are identified. There are genaro e calcifications within the mid pelvis likely uterine fibroids. IMPRESSION: 1. No acute osseous abnormality AP pelvis. 2. Moderate degenerative changes right hip [facility], Workstation: [facility], 08/09/2024 12:10 PM
--- NOTE | 2024-08-09 12:13 | XR ---
EXAMINATION TYPE: XR Hip Complete RT DATE OF EXAM: 08/09/2024 12:07 PM COMPARISON: None. CLINICAL INDICATION: Female, 54 years old with history of R52 Hip pain, pain TECHNIQUE: 2 view(s) obtained. FINDINGS: Femoral head articulates with the acetabulum. There is loss of the superior joint space. Some femoral head spurring is present. No acute fractures are evident. Follow up exams can be performed 7-10 days from acute trauma for continued pain. IMPRESSION: 1. Moderate degenerative changes right hip [facility], Workstation: [facility], 08/09/2024 12:11 PM
== END | disposition home or self-care (01) ==
LOC: RADXRMAIN 11:21
PROVIDERS: ATTEND Emergency Medicine
DX: S70.01XA Contusion of right hip, initial encounter (principal); M16.11 Unilateral primary osteoarthritis, right hip
CPT/HCPCS: 72170; 73502

== ENCOUNTER → 2024-09-02 | Outpatient (CLI) | payer OTHER ==
--- NOTE | 2024-09-02 09:32 | XR ---
EXAMINATION TYPE: XR femur 2 views RT DATE OF EXAM: 09/02/2024 9:27 AM COMPARISON: Right hip 08/09/2024 CLINICAL INDICATION: Female, 54 years old with history of S70.01XD CONTUSION OF RIGHT HIP, SUBSEQUENT ENCOUNTER; PHH, pain FINDINGS: Redemonstrated is moderate to severe degenerative change right hip with a complete near complete loss of cartilage and joint space along the superolateral weightbearing aspect. Associated mild bony landon deling and marginal spurring. A 2.2 cm calcification in the right side of the pelvis, possible calcif ied fibroid. Right-sided tubal ligation clip seen. Some possible underlying varices in the medial thi gh soft tissues. Some degenerative spurring at the knee. No acute fracture, subluxation, or dislocati on is seen. IMPRESSION: 1. Moderate to severe right hip OA. 2. Some degenerative spurring at the knee. 3. Some possible varices along the medial aspect of the thigh. Clinically correlate. 4. No acute osseous abnormality seen. [facility], , 09/02/2024 9:30 AM
== END | disposition home or self-care (01) ==
LOC: RADXRMAIN 09:14
PROVIDERS: ATTEND Emergency Medicine
DX: S70.01XD Contusion of right hip, subsequent encounter (principal); M16.11 Unilateral primary osteoarthritis, right hip; M25.761 Osteophyte, right knee

== ENCOUNTER → 2024-10-16 | Outpatient (CLI) | payer BC ==
--- NOTE | 2024-10-16 16:10 | CTL ---
EXAMINATION TYPE: CT Low Dose Lung DATE OF EXAM ORDERED: 10/16/2024 COMPARISON: CT chest abdomen pelvis dated 11/06/2014 CLINICAL INDICATION: Female, 54 years old with history of Z12.2 LUNG CA SCR F17.210 CURRENT SMOKER; P HH, current smoker, 1 ppd x 38 years, Lung cancer screening, History of Smoking/tobacco use. TECHNIQUE: Low dose computed tomography scan was performed through the chest at 1 mm thick sections a nd reconstructed images in multiple planes at 1 mm and [address] DLP: 101.[address] CTDI: 2.6 mGy Automated exposure control for dose reduction was used. CT DIAGNOSTIC QUALITY: Satisfactory FINDINGS: There are a few scattered sub-3 mm nodules. There is no suspicious lung mass or nodule. There is no lung consolidation or abnormal interstitial density. There is no pleural effusion or pneumothorax. The great vessels and heart are normal in size. There is no mediastinal, hilar or axillary adenopathy. Limited scanning through the upper abdomen reveals no gross abnormality. There are no focal osseous lesions. There are bilateral breast implants IMPRESSION: 1. Lung RADS category 2 benign. Continue routine screening at yearly intervals. 2. No acute cardiopu lmonary disease. [facility], , 10/16/2024 4:08 PM
== END | disposition home or self-care (01) ==
LOC: RADCTMAIN 15:20
PROVIDERS: ATTEND Internal Medicine Hematology & Oncology
DX: Z12.2 Encounter for screening for malignant neoplasm of respiratory organs (principal); F17.210 Nicotine dependence, cigarettes, uncomplicated
CPT/HCPCS: 71271

== ENCOUNTER → 2024-10-21 | Outpatient (CLI) | payer BC ==
--- NOTE | 2024-10-22 07:17 | BD ---
EXAMINATION TYPE: Axial Bone Density DATE OF EXAM: 10/21/2024 CLINICAL HISTORY: 54 years old Female. ICD-10 CODE: M81.0 AGE-RELATED OSTEOPOROSIS W/O CURRENT PATHO LO , Additional History: Height: 64.25 Weight: 212.7 FRAX RISK QUESTIONS: Alcohol (3 or more units per day): no Family History (Parent hip fracture): no Glucocorticoids (More than 3mos): no (Ex: prednisone, prednisolone, methylprednisolone, dexamethasone, and hydrocortisone). History of Fracture in Adulthood:ribs Secondary Osteoporosis: 1. Type 1 Diabetes: no 2. Hyperthyroidism: no 3. Menopause before 45: yes 4. Malnutrition: no 5. Chronic liver disease: no Rheumatoid Arthritis: no Current Tobacco Use: yes RISK FACTORS HISTORY OF: Hip Fracture (Right/Left): no Spine Fracture: no History of Wrist Fracture: no Surgery to Spine/Hip(right/left)/Wrist (right/left): Lt Hip replaced 2021 MEDICATIONS: Thyroid Medications: Synthroid How Long: past 12 years Osteoporosis Medications: no Breast Ca. 2014 with chemo EXAM MEASUREMENTS: Bone mineral densitometry was performed using the O4IT System. Bone mineral density as measured about the Lumbar spine is: ----- L1-L4(G/cm2): 0.989 T Score Values are as follows: ----- L1: -2.1 ----- L2: -1.1 ----- L3: -0.8 ----- L4: -2.4 ----- L1-L4: -1.6 Z Score Values are as follows: ----- L1: -2.5 ----- L2: -1.5 ----- L3: -1.2 ----- L4: -2.8 ----- L1-L4: -2.0 Bone mineral density has: decreased -2.3 % since study of: 07/27/2022 Bone mineral density about the R hip (g/cm2): 0.934 T Score values are as follows: -----R Neck: -0.8 -----R Total: -0.6 Z Score values are as follows: -----R Neck: -0.5 -----R Total: -0.8 Bone mineral density has: decreased -1.4 % since study of: 07/29/2022 FRAX%s: The graph provided illustrates a 8.1% chance for a major osteoporotic fx and a 0.6% chance fo r the hips probability for fx in 10 years time. IMPRESSION: Osteopenia (T Score between -2.5 and -1). There is slightly increased risk of fracture and the patient may be considered for treatment. Re-Screen 2-5 years. NOTE: T-SCORE=SD OF THE YOUNG ADULT MEAN. [facility], , 10/22/2024 7:15 AM
== END | disposition home or self-care (01) ==
LOC: RADBDWWP 15:10
PROVIDERS: ATTEND Internal Medicine Hematology & Oncology
DX: M81.0 Age-related osteoporosis without current pathological fracture (principal); C50.212 Malignant neoplasm of upper-inner quadrant of left female breast; K76.0 Fatty (change of) liver, not elsewhere classified; F17.210 Nicotine dependence, cigarettes, uncomplicated; M85.89 Other specified disorders of bone density and structure, multiple sites; Z71.3 Dietary counseling and surveillance; Z78.0 Asymptomatic menopausal state
CPT/HCPCS: 77080